=== PATIENT | male | born 1940 | race Caucasian/White ===

== ENCOUNTER 2019-02-16 13:53 | Inpatient (IN) | payer MEDICARE, OTHER ==
[2019-02-16] MEDS ORDERED: Haloperidol Lactate 5 mg/mL 1mL Vial IM ONE (15:37)
[2019-02-16] MEDS ORDERED: Haloperidol Lactate 5 mg/mL 1mL Vial ONE (15:42)
--- NOTE | 2019-02-16 16:07 | ED Physician Chart ---
ED Chief Complaint/HPI - Patient Information Date Seen:: 02/16/19 Time Seen:: 14:30 Chief Complaint:: increased aggitation place residence Allergies:: Allergies Allergy/AdvReac Type Severity Reaction Status Date / Time No Known Allergies Allergy Verified 02/16/19 14:14 Vitals:: Vital Signs - 8 hr 02/16/19 14:15 Temp 97.3 F HR 68 RR 16 BP 138/97 O2 Sat % 96 Historian:: EMS (and psychiatrist), Other (solo truck driver) Review:: Nurse's Note Reviewed ED Review of Systems - Review of Systems General/Constitutional: No fever ED Past Medical History - Past Medical History Obtainable: No Past Medical History: Dementia Family Medical History - Family Member Mother History Unknown: Yes ED Physical Exam - Physical Examination General/Constitutional: Non-toxic appearing, Ambulatory Head: Atraumatic Eyes: Lids, conjuctiva normal Skin: Nl inspection ENMT: External ears, nose nl Neck: Nontender Respiratory: Nl effort/Exclusion Cardio Vascular: RRR GI: No tenderness/rebounding/guarding Extremities: Full ROM ED Labs/Radiology/EKG Results - Lab Results Results: refused lab draw ED Septic Shock - . Is Septic Shock (SBP<90, OR Lactate>4 mmol\L) present?: No - <6hrs of presentation: Vital Signs: Vital Signs - 8 hr 02/16/19 14:15 Temp 97.3 F HR 68 RR 16 BP 138/97 O2 Sat % 96 ED Reassessment (Disposition) - Reassessment Reassessment Condition:: Unchanged - Patient Disposition Discharge/Transfer:: Acute Care w/in this hosp (psy orderedhaldol bendryl ativan to obtain lab)
[2019-02-16 17:06] LABS: % BASOPHILS 0.9 % (0.0-2.0); % EOSINOPHILS 2.8 % (0.0-5.0); % MONOCYTES 5.5 % (2.0-10.0); % NEUTROPHILS 69.8 % (40.0-80.0); EOSINOPHILE ABSOLUTE 0.1 Th/cmm (0.1-0.4); HEMATOCRIT 33.7 % (41.0-60); HEMOGLOBIN 11.2 gm/dL (12-16); LYMPHOCYTE ABSOLUTE 1.1 Th/cmm (1.5-3.0); MEAN CORPUSCULAR HEMOGLOBIN 31.9 pg (27.0-31.0); MEAN CORPUSCULAR HGB CONC 33.2 pg (28.0-36.0); MEAN PLATELET VOLUME 6.1 fl; MONOCYTE ABSOLUTE 0.3 Th/cmm (0.3-1.0); NEUTROPHILE ABSOLUTE 3.8 Th/cmm (1.8-8.0); PLATELET COUNT 242 Th/cmm (150-400); RED BLOOD COUNT 3.51 Mil/cmm (3.80-5.80); RED CELL DISTRIBUTION WIDTH 14.6 % (11.5-20.0); WHITE BLOOD COUNT 5.3 Th/cmm (4.8-10.8)
[2019-02-16 17:23] LABS: ALB/GLOB RATIO 1.6 (1.0-1.8); ALKALINE PHOSPHATASE 61 U/L (34-104); ANION GAP 12.3 (7.0-16.0); BILIRUBIN,TOTAL 0.4 mg/dL (0.3-1.0); BUN - UREA NITROGEN 25 mg/dL (7-25); CALCIUM SERUM 8.6 mg/dL (8.6-10.3); CARBON DIOXIDE 22.4 mEq/L (21.0-31.0); CHLORIDE 104 mEq/L (98-107); CREATININE - SERUM 0.8 mg/dL (0.7-1.3); GLUCOSE 91 mg/dL (70-105); POTASSIUM SERUM 3.7 mEq/L (3.5-5.1); SGOT 35 U/L (13-39); SGPT/ALT 20 U/L (7-52); SODIUM SERUM 135 mEq/L (136-145); TOTAL PROTEIN,SERUM 6.5 gm/dL (6.0-8.3)
[2019-02-16 20:22] VITALS: BP 126/71
[2019-02-16] MEDS ORDERED: Maalox 30 mL Cup PO PRN (20:23)
[2019-02-16] MEDS ORDERED: Magnesium Hydroxide (MOM) 30 mL UDC PO PRN (20:23)
[2019-02-17] MEDS ORDERED: Multivitamin Tab PO SCH (09:00)
--- NOTE | 2019-02-17 11:40 | History and Physical ---
History of Present Illness - HPI Chief Complaint: 79 y/o male patient was brought to ER due to Increased Agitation. HPI: 79 y/o male patient was admitted at [facility] due to Increased Agitation. Patient's past medical history is unknown. Patient had an ER assessment done and a complete workup was done. Patient was diagnosed with Acute psychosis. Patient will have a Psych evaluation and management. I will follow, treat and monitor patient. Patient will continue current treatment plan as ordered. Vital Signs: Last Vital Signs Temp 98.8 F 02/16/19 19:36 Pulse 60 02/16/19 19:36 Resp 18 02/17/19 08:00 BP 126/71 02/16/19 20:22 Pulse Ox 100 02/16/19 19:17 Past Medical History Cardiovascular: Report: No Pertinent Hx Pulmonary: Report: No Pertinent Hx MEDICAL ORDERLY: Report: No Pertinent Hx GI: Report: No Pertinent Hx Psych: Report: Psychosis Musculoskeletal: Report: No Pertinent Hx Rheumatologic: Report: No pertinent Hx Infectious Disease: Report: No Pertinent Hx Renal/: Report: No Pertinent Hx Endocrine: Report: No Pertinent Hx Dermatology: Report: No Pertinent Hx - Past Surgical History Past Surgical History: No pertinent Hx Family Medical History - Family Member Mother History Unknown: Yes Social History Smoke: No Alcohol: None Drugs: None Lives: [place] Domestic Violence: Negative Health Maintenance Health Maintenance: Other (see chart.) - Medications Home Medications: Home Medication Medication Instructions Recorded Type OLANZapine [ZyPREXA] 5 mg PO BID 02/16/19 History Other Medications: Please see medication reconciliation sheet. - Allergies Allergies/Adverse Reactions: Allergies Allergy/AdvReac Type Severity Reaction Status Date / Time No Known Allergies Allergy Verified 02/16/19 14:14 Review of Systems - Review of Systems Review of Systems: 79 y/o male patient has had increased agitation. Constitutional: Report: No Significant Eyes: Report: No Significant ENT: Report: No Significant Respiratory: Report: No Significant Cardiovascular: Report: No Significant Gastrointestinal: Report: No Significant Genitourinary: Report: No Significant Musculoskeletal: Report: No Significant Skin: Report: No Significant Neurological: Report: Other (agitation.) Physical Exam - Physical Exam HEENT: Report: Ears Nose Throat within normal limits Neck: Report: Within normal limits Cardiovascular Systems: Report: +s1/s2 noted, Regular, Rate and Rhythm Respiratory: Report: Breath Sounds are within normal limits Abdomen: Report: Non-tender to palpation Back: Report: Inspection of back is within normal limits. Extremities: Report: Non-tender to palpation. Skin: Report: Color of skin is within normal limits Neuro/Psych: Report: Other (Increased agitation.) - Lab Results All Lab Results last 24 hours: Laboratory Results - last 24 hr 02/16/19 02/16/19 17:03 17:03 WBC 5.3 RBC 3.51 L Hgb 11.2 L Hct 33.7 L MCV 96.0 MCH 31.9 H MCHC Differential 33.2 RDW 14.6 Plt Count 242 MPV 6.1 Neutrophils % 69.8 Lymphocytes % 21.0 Monocytes % 5.5 Eosinophils % 2.8 Basophils % 0.9 Sodium 135 L Potassium 3.7 Chloride 104 Carbon Dioxide 22.4 Anion Gap 12.3 BUN 25 Creatinine 0.8 Est GFR ( Amer) TNP Est GFR (Non-Af Amer) TNP BUN/Creatinine Ratio 31.3 Glucose 91 Calcium 8.6 Total Bilirubin 0.4 AST 35 ALT 20 Alkaline Phosphatase 61 Total Protein 6.5 Albumin 4.0 L Globulin 2.5 Albumin/Globulin Ratio 1.6 - Assessment Assessment: Acute Psychosis. Increased agitation. - Plan Plan: Plan Continuation of care. Psych eval/management requested. Monitor labs. Continue present meds as directed. Monitor Diet/Nutritional support. Safety precaution. Supportive care. Fall precaution. Will Monitor patient and continue current treatment plan as ordered.
--- NOTE | 2019-02-18 10:03 | Psychiatric Evaluation ---
DATE OF SERVICE: INITIAL EVALUATION AND MENTAL STATUS EXAM PATIENT'S AGE: 79-year-old. SEX: Male. PHYSICIAN: Sheri Escobar MD, MPH CHIEF COMPLAINT: Increased agitation and aggressive behavior. HISTORY OF PRESENT ILLNESS: The patient is an 79-year-old male who lives in [facility]. The patient became extremely agitated and irritable at the facility and was not able to follow any directions and started hitting peers and staff and the patient was transferred to the [facility]. The patient is still agitated and is still irritable and restless. The patient also was fighting and hitting staff upon arrival. The patient also was still not able to follow any directions and the patient was given emergency Haldol, Ativan and Benadryl earlier. The patient currently seems to be sedated and he is sleeping and he is not able to follow directions and had to be given emergency medicine to calm him down. PAST PSYCHIATRIC HISTORY: The patient has history of psychosis and dementia. PAST MEDICAL HISTORY: No major medical problems for the patient. SOCIAL HISTORY: The patient lives in [facility]. No known alcohol or drug use at this time. ALLERGIES: No known allergies. MENTAL STATUS EXAMINATION: The patient appears slightly older than his stated age. Anxious. Sad affect. Irritable mood. Thought processes are circumstantial with occasional flight of ideas. The patient seems to be preoccupied and agitated and delusional and responding. Intact remote memory, but impaired immediate and recent memory. Poor insight and poor judgment. ASSESSMENT: PRIMARY DIAGNOSIS: Chronic paranoid schizophrenia with acute exacerbation. TREATMENT PLAN: We will monitor the patient's behavior and condition closely. We will start individual as well as milieu psychotherapy. Also, we will monitor psychotropic medications and we will start the patient on Seroquel 100 mg 3 times a day and will adjust the dose. ESTIMATED LENGTH OF STAY: 5-7 days. THE PATIENT'S STRENGTHS AND WEAKNESSES: The patient's strength is not clear at this time. Weaknesses are his ineffective coping and poor impulse control. AFTER DISCHARGE PLAN: Outpatient treatment and followup will continue as an outpatient. CRITERIA FOR DISCHARGE: Better impulse control, adjusting psychotropic medication and will not be psychotic. [facility]# [id number]
--- NOTE | 2019-02-18 10:31 | Progress Notes ---
DATE: SUBJECTIVE: Chart was reviewed and the patient interviewed. Also discussed the patient's condition with the staff and reviewed records and labs. The patient continued to be easily agitated and is still demanding and in irritable mood. The patient also still gets aggressive with the staff, especially when he asks to smoke and not smoking time and he gets more agitated and physically aggressive. Also, is still in angry mood and confused and during my interview, the patient was wandering around and turning on and off the switch light in his room. Otherwise, the patient started to comply with taking Seroquel and Zyprexa and the planning to cross titrate Zyprexa with Seroquel. ASSESSMENT: The patient is still confused and aggressive and can be dangerous to others. TREATMENT PLAN: Continue adjusting psychotropic medications and continue to work on behavioral modification. [facility]# [id number]
--- NOTE | 2019-02-19 14:44 | Internal Medicine Prog Note ---
Internal Medicine Subjective - Subjective Service Date: 02/19/19 Patient seen and examined:: with staff Patient is:: awake, interactive, confused Patient Complaints of:: other (Aggressive.) Per staff patient has:: no adverse event, no episodes of fall, agitated Internal Medicine Objective - Results Result Diagrams: 02/16/19 17:03 02/16/19 17:03 Recent Labs: Laboratory Last Values WBC 5.3 Th/cmm (4.8-10.8) 02/16/19 17:03 RBC 3.51 Mil/cmm (3.80-5.80) L 02/16/19 17:03 Hgb 11.2 gm/dL (12-16) L 02/16/19 17:03 Hct 33.7 % (41.0-60) L 02/16/19 17:03 MCV 96.0 fl (80-99) 02/16/19 17:03 MCH 31.9 pg (27.0-31.0) H 02/16/19 17:03 MCHC Differential 33.2 pg (28.0-36.0) 02/16/19 17:03 RDW 14.6 % (11.5-20.0) 02/16/19 17:03 Plt Count 242 Th/cmm (150-400) 02/16/19 17:03 MPV 6.1 fl 02/16/19 17:03 Neutrophils % 69.8 % (40.0-80.0) 02/16/19 17:03 Lymphocytes % 21.0 % (20.0-50.0) 02/16/19 17:03 Monocytes % 5.5 % (2.0-10.0) 02/16/19 17:03 Eosinophils % 2.8 % (0.0-5.0) 02/16/19 17:03 Basophils % 0.9 % (0.0-2.0) 02/16/19 17:03 Sodium 135 mEq/L (136-145) L 02/16/19 17:03 Potassium 3.7 mEq/L (3.5-5.1) 02/16/19 17:03 Chloride 104 mEq/L (98-107) 02/16/19 17:03 Carbon Dioxide 22.4 mEq/L (21.0-31.0) 02/16/19 17:03 Anion Gap 12.3 (7.0-16.0) 02/16/19 17:03 BUN 25 mg/dL (7-25) 02/16/19 17:03 Creatinine 0.8 mg/dL (0.7-1.3) 02/16/19 17:03 Est GFR ( Amer) TNP 02/16/19 17:03 Est GFR (Non-Af Amer) TNP 02/16/19 17:03 BUN/Creatinine Ratio 31.3 02/16/19 17:03 Glucose 91 mg/dL (70-105) 02/16/19 17:03 Calcium 8.6 mg/dL (8.6-10.3) 02/16/19 17:03 Total Bilirubin 0.4 mg/dL (0.3-1.0) 02/16/19 17:03 AST 35 U/L (13-39) 02/16/19 17:03 ALT 20 U/L (7-52) 02/16/19 17:03 Alkaline Phosphatase 61 U/L (34-104) 02/16/19 17:03 Total Protein 6.5 gm/dL (6.0-8.3) 02/16/19 17:03 Albumin 4.0 gm/dL (4.2-5.5) L 02/16/19 17:03 Globulin 2.5 gm/dL 02/16/19 17:03 Albumin/Globulin Ratio 1.6 (1.0-1.8) 02/16/19 17:03 - Physical Exam Vitals and I&O: Vital Signs Temp 97.6 F 02/19/19 06:04 Pulse 66 02/19/19 06:04 Resp 18 02/19/19 06:04 BP 127/74 02/19/19 06:04 Pulse Ox 96 02/19/19 06:04 Intake & Output 02/18/19 02/19/19 02/19/19 18:59 06:59 18:59 Intake Total 1200 120 Balance 1200 120 Intake: Oral 1200 120 Other: # Voids 4 3 # Bowel Movements 1 Active Medications: Current Medications Acetaminophen (Tylenol) 650 mg PO Q4HR PRN PRN Reason: Mild Pain / Temp above 100 Stop: 04/17/19 20:22 Al Hydrox/Mg Hydrox/Simethicone (Maalox) 30 ml PO Q4HR PRN PRN Reason: GI DISTRESS Stop: 04/17/19 20:22 Lorazepam (Ativan) 0.5 mg PO Q4HR PRN; Protocol PRN Reason: Anxiety Stop: 03/18/19 20:22 Magnesium Hydroxide (Milk Of Magnesia) 30 ml PO HS PRN PRN Reason: Constipation Mupirocin (Bactroban Oint) 10 appl TP BID [facility] Stop: 04/20/19 08:59 Last Admin: 02/19/19 09:03 Dose: 10 appl Quetiapine Fumarate (Seroquel) 100 mg PO TID [facility]; Protocol Stop: 04/18/19 08:59 Last Admin: 02/19/19 13:54 Dose: 100 mg Risperidone (Risperdal) 1 mg PO BID [facility]; Protocol Stop: 04/20/19 08:59 Physical Exam: 79 y/o male patient is aggressive and dis-oriented. General: other (Confused.) HEENT: NC/AT Neck: Supple Lungs: CTAB Cardiovascular: Normal S1 Abdomen: soft, non-tender Extremities: clear Neurological: no change Internal Medicine Assmt/Plan - Assessment Assessment: Acute Psychosis. Increased agitation. - Plan Plan: Plan Continuation of care. Psych eval/management requested. Monitor labs. Continue present meds as directed. Monitor Diet/Nutritional support. Safety precaution. Supportive care. Fall precaution. Will Monitor patient and continue current treatment plan as ordered. Nutritional Asmnt/Malnutr-PDOC - Dietary Evaluation Malnutrition Findings (Please click <Entered> for more info): see orders.
--- NOTE | 2019-02-19 22:21 | Progress Notes ---
DATE: SUBJECTIVE: Chart was reviewed and the patient interviewed. Also discussed the patient's condition with the staff and reviewed records and labs. The patient is still easily agitated and easily irritable. The patient also is still confused and aggressive and wandering around his room during my interview and has unrelated questions. The patient also still at times has refused to take his medications. Also, he is rambling. Also, he was throwing objects around his room. The patient did take his Seroquel, but refused to take Zyprexa in the morning. ASSESSMENT: The patient is still psychotic and aggressive and can be dangerous to others. TREATMENT PLAN: Continue to monitor his behavior and his condition closely. Also, continue to work on his psychosis and irritability and continue to follow up. JOB# [id number]
--- NOTE | 2019-02-20 20:37 | Progress Notes ---
DATE: 02/20/2019 SUBJECTIVE: The patient was seen in his room. The patient is awake, appears to be guarded. He easily gets frustrated and irritable. The patient is a poor historian due to medical condition, otherwise the patient appears to be in no acute distress. OBJECTIVE: VITAL SIGNS: Temperature 98.4, heart rate 64, blood pressure 135/85, respirations 19, and 95% on room air. HEENT: Head is atraumatic and normocephalic. Eyes: Bilateral conjunctivae are clear. Bilateral pupils are equally round and reactive. NECK: Supple. No JVD. CARDIOVASCULAR: S1, S2, without murmur. PULMONARY: Clear to auscultation. GASTROINTESTINAL: Soft and nontender without guarding. Positive bowel sounds. MUSCULOSKELETAL: No clubbing. No cyanosis noted. ASSESSMENT: 1. Dementia. 2. Psychosis. 3. Osteoarthritis. PLAN: We will continue to keep the patient in inpatient psychiatric unit. We will follow up with a psychiatrist to monitor the patient's condition and behavior. Treatment plans were discussed with the patient's nurse. Treatment plans were discussed with Dr. Gold. JOB# [id number]
--- NOTE | 2019-02-21 02:03 | Progress Notes ---
DATE: 02/20/2019 SUBJECTIVE: Chart was reviewed and the patient interviewed. Also discussed the patient's condition with the staff and reviewed the records and labs. The patient is still agitated and is still rambling and has unpredictable behavior. The patient also is still forgetful and is still aggressive and easily agitated with the staff and others. The patient also is demanding and is wandering around his room in a confused and agitated state. Otherwise, the patient continued to comply with taking Seroquel and Risperdal with no side effects. ASSESSMENT: The patient is still agitated and still needs close monitoring. TREATMENT PLAN: Continue to monitor his behavior and condition closely. Also, continue adjusting psychotropic medications and work on behavioral modification because the patient still can be dangerous to others. [facility]# [id number]
--- NOTE | 2019-02-21 10:06 | Internal Medicine Prog Note ---
Internal Medicine Subjective - Subjective Patient seen and examined:: chart reviewed Patient is:: awake, interactive, confused, other (still agitated, unpredictable ) Patient Complaints of:: other (Aggressive.) Per staff patient has:: no adverse event, no episodes of fall, agitated Internal Medicine Objective - Results Result Diagrams: 02/16/19 17:03 02/16/19 17:03 Recent Labs: Laboratory Last Values WBC 5.3 Th/cmm (4.8-10.8) 02/16/19 17:03 RBC 3.51 Mil/cmm (3.80-5.80) L 02/16/19 17:03 Hgb 11.2 gm/dL (12-16) L 02/16/19 17:03 Hct 33.7 % (41.0-60) L 02/16/19 17:03 MCV 96.0 fl (80-99) 02/16/19 17:03 MCH 31.9 pg (27.0-31.0) H 02/16/19 17:03 MCHC Differential 33.2 pg (28.0-36.0) 02/16/19 17:03 RDW 14.6 % (11.5-20.0) 02/16/19 17:03 Plt Count 242 Th/cmm (150-400) 02/16/19 17:03 MPV 6.1 fl 02/16/19 17:03 Neutrophils % 69.8 % (40.0-80.0) 02/16/19 17:03 Lymphocytes % 21.0 % (20.0-50.0) 02/16/19 17:03 Monocytes % 5.5 % (2.0-10.0) 02/16/19 17:03 Eosinophils % 2.8 % (0.0-5.0) 02/16/19 17:03 Basophils % 0.9 % (0.0-2.0) 02/16/19 17:03 Sodium 135 mEq/L (136-145) L 02/16/19 17:03 Potassium 3.7 mEq/L (3.5-5.1) 02/16/19 17:03 Chloride 104 mEq/L (98-107) 02/16/19 17:03 Carbon Dioxide 22.4 mEq/L (21.0-31.0) 02/16/19 17:03 Anion Gap 12.3 (7.0-16.0) 02/16/19 17:03 BUN 25 mg/dL (7-25) 02/16/19 17:03 Creatinine 0.8 mg/dL (0.7-1.3) 02/16/19 17:03 Est GFR ( Amer) TNP 02/16/19 17:03 Est GFR (Non-Af Amer) TNP 02/16/19 17:03 BUN/Creatinine Ratio 31.3 02/16/19 17:03 Glucose 91 mg/dL (70-105) 02/16/19 17:03 Calcium 8.6 mg/dL (8.6-10.3) 02/16/19 17:03 Total Bilirubin 0.4 mg/dL (0.3-1.0) 02/16/19 17:03 AST 35 U/L (13-39) 02/16/19 17:03 ALT 20 U/L (7-52) 02/16/19 17:03 Alkaline Phosphatase 61 U/L (34-104) 02/16/19 17:03 Total Protein 6.5 gm/dL (6.0-8.3) 02/16/19 17:03 Albumin 4.0 gm/dL (4.2-5.5) L 02/16/19 17:03 Globulin 2.5 gm/dL 02/16/19 17:03 Albumin/Globulin Ratio 1.6 (1.0-1.8) 02/16/19 17:03 - Physical Exam Vitals and I&O: Vital Signs Temp 98 F 02/21/19 05:56 Pulse 62 02/21/19 05:56 Resp 20 02/21/19 05:56 BP 135/89 02/21/19 05:56 Pulse Ox 100 02/21/19 05:56 Active Medications: Current Medications Acetaminophen (Tylenol) 650 mg PO Q4HR PRN PRN Reason: Mild Pain / Temp above 100 Stop: 04/17/19 20:22 Al Hydrox/Mg Hydrox/Simethicone (Maalox) 30 ml PO Q4HR PRN PRN Reason: GI DISTRESS Stop: 04/17/19 20:22 Lorazepam (Ativan) 0.5 mg PO Q4HR PRN; Protocol PRN Reason: Anxiety Stop: 03/18/19 20:22 Last Admin: 02/21/19 09:33 Dose: 0.5 mg Magnesium Hydroxide (Milk Of Magnesia) 30 ml PO HS PRN PRN Reason: Constipation Mupirocin (Bactroban Oint) 10 appl TP BID [facility] Stop: 04/20/19 08:59 Last Admin: 02/21/19 09:45 Dose: Not Given Quetiapine Fumarate (Seroquel) 150 mg PO TID [facility]; Protocol Stop: 04/22/19 08:59 Last Admin: 02/21/19 09:32 Dose: 150 mg Risperidone (Risperdal) 1 mg PO BID VINNY; Protocol Stop: 04/20/19 08:59 Last Admin: 02/21/19 09:33 Dose: 1 mg Physical Exam: 79 y/o male patient is aggressive and dis-oriented. General: other (Confused.) HEENT: NC/AT Neck: Supple Lungs: CTAB Cardiovascular: Normal S1 Abdomen: soft, non-tender Extremities: clear Neurological: no change Internal Medicine Assmt/Plan - Assessment Assessment: Acute Psychosis. Increased agitation. - Plan Plan: Plan Continuation of care. Psych eval/management requested. Monitor labs. Continue present meds as directed. Monitor Diet/Nutritional support. Safety precaution. Supportive care. Fall precaution. Will Monitor patient and continue current treatment plan as ordered.
[2019-02-21] MEDS ORDERED: Sodium Chloride 0.9% 1,000 ML IV SCH (23:15)
--- NOTE | 2019-02-24 00:25 | History & Physical ---
ADMIT DATE: 02/16/2019 HISTORY OF PRESENT ILLNESS: This is an 79-year-old male patient. The patient is known to have history of multiple problems including severe agitation, severe psychosis, recently had dropped his blood pressure down, was admitted to [facility] and then readily transferred to the [facility] once his blood pressure is improved and the patient was very aggressive and a noncompliant patient. Medication including Seroquel, Risperdal, as well as Tylenol. PHYSICAL EXAMINATION: HEAD: Normal. ENT: Normal. NECK: Supple, nontender. LUNGS: Bilaterally clear. CARDIOVASCULAR SYSTEM: S1, S2 heard. ABDOMEN: Soft. DIAGNOSES: Recent hypotensive episode of unknown etiology, possibly dehydration and acute psychosis, confusion and agitation. PLAN: The patient is being admitted and I will go ahead and continue his management medically admitted and psychiatrist will see the patient psychiatrically. JOB# [id number]
== END 2019-02-21 21:58 | disposition short-term general hospital (02) | DRG 885 ==
LOC: ER 13:53 → GERO2 19:15
PROVIDERS: ADMIT Psychiatry & Neurology Psychiatry; ATTEND Psychiatry & Neurology Psychiatry
DX: F20.0 Paranoid schizophrenia (principal); M19.90 Unspecified osteoarthritis, unspecified site; F03.90 Unspecified dementia, unspecified severity, without behavioral disturbance, psychotic disturbance, mood disturbance, and anxiety; F29 Unspecified psychosis not due to a substance or known physiological condition
CPT/HCPCS: 36415-UA; 80053-TC; 82948-90; 85025-TC; J1200; J1630; J2060; J7051; Z7610

== ENCOUNTER 2019-02-21 22:01 | Inpatient (IN) | payer MEDICARE, OTHER ==
[2019-02-21] MEDS ORDERED: Sodium Chloride 0.9% 1,000 ML IV SCH (23:15)
--- NOTE | 2019-02-21 23:26 | Progress Notes ---
DATE: SUBJECTIVE: Chart reviewed and the patient interviewed. Also discussed the patient's condition with the staff and reviewed records and labs. The patient is still demanding and is still agitated and in irritable mood. The patient also is still rambling and still have unpredictable behavior. The patient also is easily agitated. On the other hand, the patient continued to comply with taking his medications with no side effects of medications. ASSESSMENT: The patient is still agitated and can be dangerous to others. TREATMENT PLAN: Continue to monitor his behavior and his condition closely. Also, continue adjusting psychotropic medications and followup. JOB# [id number]
[2019-02-21 23:35] LABS: % EOSINOPHILS 3.4 % (0.0-5.0); % LYMPHOCYTES 31.6 % (20.0-50.0); % MONOCYTES 6.2 % (2.0-10.0); % NEUTROPHILS 57.8 % (40.0-80.0); BASOPHILE ABSOLUTE 0.1 Th/cumm (0-0.2); EOSINOPHILE ABSOLUTE 0.2 Th/cmm (0.1-0.4); HEMATOCRIT 38.6 % (41.0-60); HEMOGLOBIN 12.7 gm/dL (12-16); LYMPHOCYTE ABSOLUTE 1.7 Th/cmm (1.5-3.0); MEAN CELL VOLUME 97.2 fl (80-99); MEAN CORPUSCULAR HEMOGLOBIN 31.9 pg (27.0-31.0); MEAN CORPUSCULAR HGB CONC 32.8 pg (28.0-36.0); MONOCYTE ABSOLUTE 0.3 Th/cmm (0.3-1.0); NEUTROPHILE ABSOLUTE 3.1 Th/cmm (1.8-8.0); PLATELET COUNT 266 Th/cmm (150-400); RED BLOOD COUNT 3.98 Mil/cmm (3.80-5.80); RED CELL DISTRIBUTION WIDTH 14.7 % (11.5-20.0); WHITE BLOOD COUNT 5.4 Th/cmm (4.8-10.8)
[2019-02-21 23:47] LABS: ALB/GLOB RATIO 1.6 (1.0-1.8); ALBUMIN 4.1 gm/dL (4.2-5.5); ALKALINE PHOSPHATASE 57 U/L (34-104); ANION GAP 11.2 (7.0-16.0); BILIRUBIN,TOTAL 0.6 mg/dL (0.3-1.0); BUN - UREA NITROGEN 26 mg/dL (7-25); CALCIUM SERUM 9.4 mg/dL (8.6-10.3); CARBON DIOXIDE 27.9 mEq/L (21.0-31.0); CHLORIDE 97 mEq/L (98-107); CREATININE - SERUM 1.2 mg/dL (0.7-1.3); GLUCOSE 88 mg/dL (70-105); POTASSIUM SERUM 4.1 mEq/L (3.5-5.1); SGOT 27 U/L (13-39); SGPT/ALT 18 U/L (7-52); SODIUM SERUM 132 mEq/L (136-145); TOTAL PROTEIN,SERUM 6.7 gm/dL (6.0-8.3)
[2019-02-22 04:42] VITALS: BP 115/75
--- NOTE | 2019-02-22 08:03 | Diagnostic Imaging Report ---
Portable chest x-ray HISTORY: Shortness of breath Heart size difficult to assess with portable technique and a poor inspiration. Atherosclerotic calcination seen in the aorta. No acute focal pulmonary processes. Cardiac pacemaker lead wires project over the right atrium and right ventricle. IMPRESSION: 1. No acute pulmonary processes
--- NOTE | 2019-02-22 10:24 | Internal Medicine Prog Note ---
Internal Medicine Subjective - Subjective Service Date: 02/22/19 Patient seen and examined:: with staff Patient is:: awake, agitated, confused Patient Complaints of:: other (aggressive behavior.) Per staff patient has:: no adverse event, no episodes of fall Internal Medicine Objective - Results Result Diagrams: 02/21/19 23:15 02/21/19 23:15 Recent Labs: Laboratory Last Values WBC 5.4 Th/cmm (4.8-10.8) 02/21/19 23:15 RBC 3.98 Mil/cmm (3.80-5.80) 02/21/19 23:15 Hgb 12.7 gm/dL (12-16) 02/21/19 23:15 Hct 38.6 % (41.0-60) L 02/21/19 23:15 MCV 97.2 fl (80-99) 02/21/19 23:15 MCH 31.9 pg (27.0-31.0) H 02/21/19 23:15 MCHC Differential 32.8 pg (28.0-36.0) 02/21/19 23:15 RDW 14.7 % (11.5-20.0) 02/21/19 23:15 Plt Count 266 Th/cmm (150-400) 02/21/19 23:15 MPV 6.7 fl 02/21/19 23:15 Neutrophils % 57.8 % (40.0-80.0) 02/21/19 23:15 Lymphocytes % 31.6 % (20.0-50.0) 02/21/19 23:15 Monocytes % 6.2 % (2.0-10.0) 02/21/19 23:15 Eosinophils % 3.4 % (0.0-5.0) 02/21/19 23:15 Basophils % 1.0 % (0.0-2.0) 02/21/19 23:15 Sodium 132 mEq/L (136-145) L 02/21/19 23:15 Potassium 4.1 mEq/L (3.5-5.1) 02/21/19 23:15 Chloride 97 mEq/L (98-107) L 02/21/19 23:15 Carbon Dioxide 27.9 mEq/L (21.0-31.0) 02/21/19 23:15 Anion Gap 11.2 (7.0-16.0) 02/21/19 23:15 BUN 26 mg/dL (7-25) H 02/21/19 23:15 Creatinine 1.2 mg/dL (0.7-1.3) 02/21/19 23:15 Est GFR ( Amer) TNP 02/21/19 23:15 Est GFR (Non-Af Amer) TNP 02/21/19 23:15 BUN/Creatinine Ratio 21.7 02/21/19 23:15 Glucose 88 mg/dL (70-105) 02/21/19 23:15 Calcium 9.4 mg/dL (8.6-10.3) 02/21/19 23:15 Total Bilirubin 0.6 mg/dL (0.3-1.0) 02/21/19 23:15 AST 27 U/L (13-39) 02/21/19 23:15 ALT 18 U/L (7-52) 02/21/19 23:15 Alkaline Phosphatase 57 U/L (34-104) 02/21/19 23:15 Total Protein 6.7 gm/dL (6.0-8.3) 02/21/19 23:15 Albumin 4.1 gm/dL (4.2-5.5) L 02/21/19 23:15 Globulin 2.6 gm/dL 02/21/19 23:15 Albumin/Globulin Ratio 1.6 (1.0-1.8) 02/21/19 23:15 - Physical Exam Vitals and I&O: Vital Signs Temp 96.6 F 02/22/19 08:00 Pulse 72 02/22/19 10:00 Resp 14 02/22/19 10:00 BP 148/97 02/22/19 10:00 Pulse Ox 97 02/22/19 10:00 Intake & Output 02/21/19 02/22/19 02/22/19 18:59 06:59 18:59 Intake Total 0 Balance 0 Weight (lbs) 83.461 kg Intake: Oral 0 Other: # Bowel Movements 0 Weight Source Bedscale Active Medications: Current Medications Sodium Chloride (Nacl 0.9%) 1,000 mls @ 50 mls/hr IV .Q20H [facility] Stop: 04/22/19 23:14 Last Admin: 02/21/19 23:00 Dose: 50 mls/hr Lorazepam (Ativan) 1 mg IVP Q4HR PRN; Protocol PRN Reason: Agitation Stop: 04/22/19 23:12 Last Admin: 02/22/19 03:55 Dose: 1 mg Physical Exam: 79 y/o male is still very aggressive and easily agitated, needs to be monitored , can be a danger to self and others. General: other (Aggressive behavior.) HEENT: NC/AT Neck: Supple Lungs: CTAB Cardiovascular: RRR, Normal S1 Abdomen: soft, non-tender Extremities: clear Neurological: no change, disorganized Internal Medicine Assmt/Plan - Assessment Assessment: Acute psychosis. Increased agitation. - Plan Plan: as per Psych. [facility] Nutritional Asmnt/Malnutr-PDOC - Dietary Evaluation Malnutrition Findings (Please click <Entered> for more info): see orders.
[2019-02-22 11:01] LABS: URINE SOURCE CLEAN C
[2019-02-22 11:19] LABS: URINE BILIRUBIN NEGATIVE (NEGATIVE); URINE BLOOD SMALL (NEGATIVE); URINE GLUCOSE (UA) NEGATIVE (NEGATIVE); URINE KETONE NEGATIVE (NEGATIVE); URINE LEUKOCYTE ESTERASE MODERATE (NEGATIVE); URINE MICROSCOPIC INDICATED? YES; URINE NITRATE NEGATIVE (NEGATIVE); URINE PROTEIN TRACE mg/dL (NEGATIVE); URINE UROBILINOGEN 0.2 E.U./dL (0.2 - 1.0)
[2019-02-22 11:30] LABS: URINE COLOR YELLOW
[2019-02-22 11:31] LABS: URINE CLARITY HAZY (CLEAR)
[2019-02-22 11:37] LABS: URINE WBC >100 /hpf (0-5)
[2019-02-22 11:38] LABS: URINE BACTERIA 1+ /hpf (NONE SEEN); URINE EPITHELIAL CELLS RARE /lpf (FEW)
--- NOTE | 2019-04-02 17:51 | Discharge Summary ---
DATE OF DISCHARGE: 02/22/2019 This patient was admitted to medical floor because the patient was hypotensive with history of acute psychosis and the patient was given fluids. The patient improved. The patient was in stable condition. On 02/22/2019 was discharged back to [facility] where the patient was admitted for agitation and psychosis. CONDITION AT THE TIME OF TRANSFER TO [facility]: Stable. JOB# [id number]
== END 2019-02-22 16:30 | DRG 315 ==
LOC: ICU 22:01
PROVIDERS: ADMIT Internal Medicine; ATTEND Internal Medicine
DX: I95.9 Hypotension, unspecified (principal); F23 Brief psychotic disorder
CPT/HCPCS: 36415-UA; 71045-TC; 80053-TC; 81001-TC; 85025-TC; 87086-90; 93005; J2060; J7030; Z7610

== ENCOUNTER 2019-02-22 16:53 | Inpatient (IN) | payer MEDICARE, OTHER ==
[2019-02-22 23:51] VITALS: BP 157/92
[2019-02-22] MEDS ORDERED: Magnesium Hydroxide (MOM) 30 mL UDC PO PRN (23:53)
[2019-02-22] MEDS ORDERED: Maalox 30 mL Cup PO PRN (23:53)
--- NOTE | 2019-02-23 01:40 | Progress Notes ---
DATE: 02/22/[address] Escobar. SUBJECTIVE: Case was discussed with staff of the patient, reviewed records. This is an 79-year-old male, who was originally admitted to [facility] on 02/16/2019. He was admitted because of increased agitation and aggressive behavior. The patient apparently had to be moved to ICU. The patient continues to have episodes of agitation, irritability, rambling, unpredictable, had to be ____ this morning 2 hours ago. The patient has been compliant with the medication with no side effects. The patient has been fed by the staff. The patient is still considered a danger to self and others because of his behavior. The patient is not ready to go to a lesser level of care because of his continued agitation and danger to others. The patient came from a board and care. The patient needs to go back to [facility] for further adjustment of his medication. Thank you very much for allowing me to participate in the care of this most interesting gentleman. [facility]# [id number]
[2019-02-23 07:06] LABS: CHOLESTEROL 290 mg/dL (<200); HDL -HIGH DENSITY LIPOPROTEIN 67 mg/dL (23-92); TRIGLYCERIDES 156 mg/dL (<150)
[2019-02-23] MEDS: Sulfamethoxazole/TMP 800/160mg Tab PO SCH ×2 (09:43→17:23)
--- NOTE | 2019-02-23 13:38 | History & Physical ---
ADMIT DATE: 02/22/2019 IDENTIFYING INFORMATION: The patient is an 79-year-old male. CHIEF COMPLAINT: The patient was acting out. HISTORY OF PRESENT ILLNESS: The patient was transferred from ICU. The patient was acting out there, had to be redirected and medicated. He was in restraint. The patient is a poor historian, unable to participate in a meaningful conversation or make safe plan for self-care. Earlier, the patient was admitted to this facility on 02/16/2019 because of agitation. PAST PSYCHIATRIC HISTORY: Unobtainable. The patient is unable to provide a meaningful conversation. MEDICAL HISTORY: As per medical doctor. ALLERGIES: The patient has no known drug allergies. MEDICATIONS: The patient has been started olanzapine 5 mg twice a day by Dr. Escobar and Seroquel 150 mg 3 times a day. FAMILY AND SOCIAL HISTORY: Unobtainable. The patient came from a nursing facility. MENTAL STATUS EXAMINATION: The patient is appropriately dressed, not well groomed. He was alert, unable to participate in a meaningful conversation or make safe plan for self-care. He is unpredictable, impulsive. He was acting out, needing redirection, unable to tell me the date, where he is, why he is here. His long and short term memory is poor. Insight and judgment is impaired. Does not know where he is, cannot participate in a meaningful conversation or make safe plan for self-care. IMPRESSION: Psychosis, not otherwise specified, dementia. Medical - as per medical doctor. PLAN: The patient will be continued with medication. I will be taking him off one of the antipsychotics three of them. I will take him off the Seroquel, keep him on Zyprexa and Risperdal, Dr. Escobar will take care of it. ESTIMATED LENGTH OF STAY: 3-7 days. DISCHARGE CRITERIA: Decreasing agitation, psychosis. After discharge, outpatient treatment. JOB# [id number]
[2019-02-23] MEDS: Atorvastatin Calcium 10 MG TAB PO SCH (21:55)
--- NOTE | 2019-02-23 23:15 | History and Physical ---
History of Present Illness - HPI Chief Complaint: 79 y/o male patient was transferred from ICU due to high blood pressure. HPI: 79 y/o male patient was transferred from ICU due to High blood pressure and Acting out. Patient has history of Acute psychosis, Anxiety, Insomnia and Dyspepsia. Patient had an ER assessment and had a complete workup done. Patient was diagnosed with Hypertension, Acute Psychosis and Constipation. Patient will have a Psych consult and I will follow patient. Patient will be treated and monitored. Patient will continue current treatment plan as ordered. Vital Signs: Last Vital Signs Temp 98.0 F 02/23/19 19:29 Pulse 72 02/23/19 19:29 Resp 20 02/23/19 19:29 BP 114/75 02/23/19 19:29 Pulse Ox 94 02/23/19 19:29 Past Medical History Cardiovascular: Report: HTN Pulmonary: Report: No Pertinent Hx MANAGER HOTEL: Report: No Pertinent Hx GI: Report: Constipation, Other (Dyspepsia.) Psych: Report: Anxiety, Psychosis, Other (Insomnia.) Musculoskeletal: Report: No Pertinent Hx Rheumatologic: Report: No pertinent Hx Infectious Disease: Report: No Pertinent Hx Renal/: Report: No Pertinent Hx Endocrine: Report: No Pertinent Hx Dermatology: Report: No Pertinent Hx - Past Surgical History Past Surgical History: No pertinent Hx Family Medical History - Family Member Mother History Unknown: Yes Ethnicity: Unknown Living Status: Unknown Social History Smoke: No Alcohol: None Drugs: None Lives: Care Home Domestic Violence: Negative Health Maintenance Health Maintenance: Other (see chart.) - Medications Home Medications: Home Medication Medication Instructions Recorded Type OLANZapine [ZyPREXA] 5 mg PO BID 02/16/19 History Acetaminophen [Tylenol] 650 mg PO Q4HR PRN 02/22/19 History Al Hyd/Mg Hyd/Simethicone [Maalox] 30 ml PO Q4HR PRN 02/22/19 History Magnesium Hydroxide [Milk of 30 ml PO HS PRN 02/22/19 History Magnesia] Mupirocin Oint [Bactroban] 1 appl TP BID 02/22/19 History QUEtiapine Fumarate [SEROquel] 150 mg PO TID 02/22/19 History Risperidone [Risperdal] 1 mg PO BID 02/22/19 History Other Medications: Please see medication reconciliation sheet. - Allergies Allergies/Adverse Reactions: Allergies Allergy/AdvReac Type Severity Reaction Status Date / Time No Known Allergies Allergy Verified 02/16/19 14:14 Review of Systems - Review of Systems Review of Systems: 79 y/o male patient has been acting out was diagnosed with Acute psychosis. Patient also had high blood pressure which is being monitored and managed. Constitutional: Report: No Significant Eyes: Report: No Significant ENT: Report: No Significant Respiratory: Report: No Significant Cardiovascular: Report: No Significant Gastrointestinal: Report: Abdominal Pain, Constipation Genitourinary: Report: No Significant Musculoskeletal: Report: No Significant Skin: Report: No Significant Neurological: Report: Other (Acute psychosis-Acting out.) Physical Exam - Physical Exam HEENT: Report: Ears Nose Throat within normal limits Neck: Report: Within normal limits Cardiovascular Systems: Report: +s1/s2 noted Respiratory: Report: Breath Sounds are within normal limits Abdomen: Report: Tender to palpation Back: Report: Inspection of back is within normal limits. Extremities: Report: Non-tender to palpation. Skin: Report: Color of skin is within normal limits Neuro/Psych: Report: Other (Acting out/Agitated.) - Lab Results All Lab Results last 24 hours: Laboratory Results - last 24 hr 02/23/19 06:20 Triglycerides 156 H Cholesterol 290 H LDL Cholesterol Direct 189 HDL Cholesterol 67 - Assessment Assessment: Acute psychosis. Hypertension. Anxiety. Insomnia. Dyspepsia. Constipation. - Plan Plan: Continuation of care. Monitor Vitals, Labs. Continue present meds as directed. Monitor Diet/Nutritional support. Psych consult requested/Psych management. Pain Management. Safety precaution. Supportive care. Fall precaution, frequent nursing rounds, and as needed restraints to prevent fall. Continue collaborating with consulting specialists, case management and nursing team. Will Monitor patient and continue current treatment plan as ordered.
--- NOTE | 2019-02-23 23:15 | Internal Medicine Prog Note ---
Internal Medicine Objective - Results Recent Labs: Laboratory Last Values Triglycerides 156 mg/dL (<150) H 02/23/19 06:20 Cholesterol 290 mg/dL (<200) H 02/23/19 06:20 LDL Cholesterol Direct 189 mg/dL (75-193) 02/23/19 06:20 HDL Cholesterol 67 mg/dL (23-92) 02/23/19 06:20 - Physical Exam Vitals and I&O: Vital Signs Temp 98.0 F 02/23/19 19:29 Pulse 72 02/23/19 19:29 Resp 20 02/23/19 19:29 BP 114/75 02/23/19 19:29 Pulse Ox 94 02/23/19 19:29 Intake & Output 02/23/19 02/23/19 02/24/19 06:59 18:59 06:59 Intake Total 120 240 240 Balance 120 240 240 Intake: Oral 120 240 240 Other: # Voids 2 0 2 # Bowel Movements 0 0 Weight Source Estimated Active Medications: Current Medications Acetaminophen (Tylenol) 650 mg PO Q4H PRN PRN Reason: Mild Pain/Headache/T above 101 Stop: 04/23/19 23:52 Last Admin: 02/23/19 21:56 Dose: 650 mg Al Hydrox/Mg Hydrox/Simethicone (Maalox) 30 ml PO Q6H PRN PRN Reason: Dyspepsia Stop: 04/23/19 23:52 Atorvastatin Calcium (Lipitor) 20 mg PO HS [facility]; Protocol Stop: 04/24/19 20:59 Last Admin: 02/23/19 21:55 Dose: 20 mg Lorazepam (Ativan) 0.5 mg PO Q4HR PRN; Protocol PRN Reason: Anxiety Stop: 03/24/19 23:52 Magnesium Hydroxide (Milk Of Magnesia) 30 ml PO HS PRN PRN Reason: Constipation Mupirocin (Bactroban Oint) 1 appl TP BID [facility] Stop: 02/25/19 09:01 Last Admin: 02/23/19 17:23 Dose: 1 appl Olanzapine (Zyprexa) 5 mg PO BID [facility]; Protocol Stop: 04/25/19 02:59 Risperidone (Risperdal) 1 mg PO BID [facility]; Protocol Stop: 04/24/19 02:59 Last Admin: 02/23/19 17:24 Dose: 1 mg Trimethoprim/Sulfamethoxazole (Bactrim Ds) 1 tab PO BID [facility] Stop: 04/24/19 08:59 Last Admin: 02/23/19 17:23 Dose: 1 tab Zolpidem Tartrate (Ambien) 5 mg PO HS PRN PRN Reason: Insomnia Stop: 04/23/19 23:52 Last Admin: 02/23/19 21:55 Dose: 5 mg
--- NOTE | 2019-02-24 08:13 | Progress Notes ---
DATE: 02/24/2019 SUBJECTIVE: Chart was reviewed and the patient interviewed. Also discussed the patient's condition with the staff and reviewed records and labs. The patient is still combative and is still banging on the table and easily irritable and agitated. The patient also is still demanding. The patient also is forgetful and still needs lots of redirections. The patient also is still suspicious and paranoid. On the other hand, the patient is compliant with taking his medications with no side effects of medications. ASSESSMENT: The patient is irritated, agitated and in irritable mood. TREATMENT PLAN: Continue to monitor his behavior and his condition closely. Also, continue to work on his poor impulse control. Also continue Zyprexa 5 mg twice a day and Risperdal 1 mg twice a day. The patient is on two antipsychotic medications, but at the same time the patient has been severely agitated and irritable and needs lots of redirections JOB# [id number]
[2019-02-24] MEDS: Sulfamethoxazole/TMP 800/160mg Tab PO SCH ×2 (09:11→17:50)
--- NOTE | 2019-02-24 11:24 | Internal Medicine Prog Note ---
Internal Medicine Subjective - Subjective Service Date: 02/23/19 Patient seen and examined:: with staff Patient is:: awake, verbal, agitated, confused Patient Complaints of:: constipation, headache Per staff patient has:: no adverse event, no episodes of fall Internal Medicine Objective - Results Recent Labs: Laboratory Last Values Triglycerides 156 mg/dL (<150) H 02/23/19 06:20 Cholesterol 290 mg/dL (<200) H 02/23/19 06:20 LDL Cholesterol Direct 189 mg/dL (75-193) 02/23/19 06:20 HDL Cholesterol 67 mg/dL (23-92) 02/23/19 06:20 - Physical Exam Vitals and I&O: Vital Signs Temp 98.3 F 02/24/19 04:54 Pulse 69 02/24/19 04:54 Resp 19 02/24/19 04:54 BP 139/97 02/24/19 04:54 Pulse Ox 90 02/24/19 04:54 Intake & Output 02/23/19 02/24/19 02/24/19 18:59 06:59 18:59 Intake Total 240 480 Balance 240 480 Intake: Oral 240 480 Other: # Voids 0 2 # Bowel Movements 0 Stool Characteristics Soft Active Medications: Current Medications Acetaminophen (Tylenol) 650 mg PO Q4H PRN PRN Reason: Mild Pain/Headache/T above 101 Stop: 04/23/19 23:52 Last Admin: 02/23/19 21:56 Dose: 650 mg Al Hydrox/Mg Hydrox/Simethicone (Maalox) 30 ml PO Q6H PRN PRN Reason: Dyspepsia Stop: 04/23/19 23:52 Atorvastatin Calcium (Lipitor) 20 mg PO HS [facility]; Protocol Stop: 04/24/19 20:59 Last Admin: 02/23/19 21:55 Dose: 20 mg Lorazepam (Ativan) 0.5 mg PO Q4HR PRN; Protocol PRN Reason: Anxiety Stop: 03/24/19 23:52 Magnesium Hydroxide (Milk Of Magnesia) 30 ml PO HS PRN PRN Reason: Constipation Mupirocin (Bactroban Oint) 1 appl TP BID [facility] Stop: 02/25/19 09:01 Last Admin: 02/24/19 09:13 Dose: 1 appl Olanzapine (Zyprexa) 5 mg PO BID [facility]; Protocol Stop: 04/25/19 02:59 Last Admin: 02/24/19 09:10 Dose: 5 mg Risperidone (Risperdal) 1 mg PO BID [facility]; Protocol Stop: 04/24/19 02:59 Last Admin: 02/24/19 09:10 Dose: 1 mg Trimethoprim/Sulfamethoxazole (Bactrim Ds) 1 tab PO BID [facility] Stop: 04/24/19 08:59 Last Admin: 02/24/19 09:11 Dose: 1 tab Zolpidem Tartrate (Ambien) 5 mg PO HS PRN PRN Reason: Insomnia Stop: 04/23/19 23:52 Last Admin: 02/23/19 21:55 Dose: 5 mg Physical Exam: 79 y/o male patient continues to be agitated and has been acting out. General: demented HEENT: NC/AT Neck: Supple, No JVD Lungs: CTAB Cardiovascular: RRR, Normal S1 Abdomen: soft, non-tender Extremities: clear Neurological: no change, disorganized Internal Medicine Assmt/Plan - Assessment Assessment: Psychosis. Constipation. Anxiety. Dyspepsia. Insomnia. - Plan Plan: Continuation of care. Monitor Vitals and Labs. Continue present meds as directed. Monitor Diet/Nutritional support. As per Psych /mental status progression/behavior. Pain Management. Safety precaution. Supportive care. Fall precaution, frequent nursing rounds, and as needed restraints to prevent fall. Continue collaborating with consulting specialists, case management and nursing team. Will Monitor patient and continue current treatment plan as ordered. Nutritional Asmnt/Malnutr-PDOC - Dietary Evaluation Malnutrition Findings (Please click <Entered> for more info): see orders.
--- NOTE | 2019-02-24 11:34 | Internal Medicine Prog Note ---
Internal Medicine Subjective - Subjective Service Date: 02/24/19 Patient seen and examined:: with staff Patient is:: awake, verbal, agitated, confused, other (still acting out.) Patient Complaints of:: constipation, bloated Per staff patient has:: no adverse event, no episodes of fall Internal Medicine Objective - Results Recent Labs: Laboratory Last Values Triglycerides 156 mg/dL (<150) H 02/23/19 06:20 Cholesterol 290 mg/dL (<200) H 02/23/19 06:20 LDL Cholesterol Direct 189 mg/dL (75-193) 02/23/19 06:20 HDL Cholesterol 67 mg/dL (23-92) 02/23/19 06:20 - Physical Exam Vitals and I&O: Vital Signs Temp 98.3 F 02/24/19 04:54 Pulse 69 02/24/19 04:54 Resp 19 02/24/19 04:54 BP 139/97 02/24/19 04:54 Pulse Ox 90 02/24/19 04:54 Intake & Output 02/23/19 02/24/19 02/24/19 18:59 06:59 18:59 Intake Total 240 480 Balance 240 480 Intake: Oral 240 480 Other: # Voids 0 2 # Bowel Movements 0 Stool Characteristics Soft Active Medications: Current Medications Acetaminophen (Tylenol) 650 mg PO Q4H PRN PRN Reason: Mild Pain/Headache/T above 101 Stop: 04/23/19 23:52 Last Admin: 02/23/19 21:56 Dose: 650 mg Al Hydrox/Mg Hydrox/Simethicone (Maalox) 30 ml PO Q6H PRN PRN Reason: Dyspepsia Stop: 04/23/19 23:52 Atorvastatin Calcium (Lipitor) 20 mg PO HS [facility]; Protocol Stop: 04/24/19 20:59 Last Admin: 02/23/19 21:55 Dose: 20 mg Lorazepam (Ativan) 0.5 mg PO Q4HR PRN; Protocol PRN Reason: Anxiety Stop: 03/24/19 23:52 Magnesium Hydroxide (Milk Of Magnesia) 30 ml PO HS PRN PRN Reason: Constipation Mupirocin (Bactroban Oint) 1 appl TP BID [facility] Stop: 02/25/19 09:01 Last Admin: 02/24/19 09:13 Dose: 1 appl Olanzapine (Zyprexa) 5 mg PO BID [facility]; Protocol Stop: 04/25/19 02:59 Last Admin: 02/24/19 09:10 Dose: 5 mg Risperidone (Risperdal) 1 mg PO BID [facility]; Protocol Stop: 04/24/19 02:59 Last Admin: 02/24/19 09:10 Dose: 1 mg Trimethoprim/Sulfamethoxazole (Bactrim Ds) 1 tab PO BID [facility] Stop: 04/24/19 08:59 Last Admin: 02/24/19 09:11 Dose: 1 tab Zolpidem Tartrate (Ambien) 5 mg PO HS PRN PRN Reason: Insomnia Stop: 04/23/19 23:52 Last Admin: 02/23/19 21:55 Dose: 5 mg Physical Exam: 79 y/o male patient continues to be easily agitated and has still been acting out. General: demented HEENT: NC/AT Neck: Supple, No JVD Lungs: CTAB Cardiovascular: RRR, Normal S1 Abdomen: soft, non-tender Extremities: clear Neurological: no change, disorganized Internal Medicine Assmt/Plan - Assessment Assessment: Psychosis. Constipation. Anxiety. Dyspepsia. Insomnia. - Plan Plan: Continuation of care. Monitor Vitals and Labs. Continue present meds as directed. Monitor Diet/Nutritional support. As per Psych /mental status progression/behavior. Pain Management. Safety precaution. Supportive care. Fall precaution, frequent nursing rounds, and as needed restraints to prevent fall. Continue collaborating with consulting specialists, case management and nursing team. Will Monitor patient and continue current treatment plan as ordered. Nutritional Asmnt/Malnutr-PDOC - Dietary Evaluation Malnutrition Findings (Please click <Entered> for more info): see orders.
[2019-02-24] MEDS: Atorvastatin Calcium 10 MG TAB PO SCH (20:58)
[2019-02-24] MEDS: Dexamethasone/Tobramycin Ophth Susp 2.5 mL Bottle EACH EYE SCH (21:09)
[2019-02-25] MEDS: Sulfamethoxazole/TMP 800/160mg Tab PO SCH ×2 (08:19→17:09)
[2019-02-25] MEDS: Dexamethasone/Tobramycin Ophth Susp 2.5 mL Bottle EACH EYE SCH ×3 (08:26→20:56)
--- NOTE | 2019-02-25 18:15 | Progress Notes ---
DATE: SUBJECTIVE: Chart was reviewed and the patient interviewed. Also discussed the patient's condition with the staff and reviewed records and labs. The patient remains extremely irritable and extremely agitated. The patient also is still suspicious and paranoid and uncooperative with the staff and threatening behavior continues. The patient also is still suspicious and paranoid. The patient also is uncooperative and refused to take his medications at times. Otherwise, the patient is slightly easier to redirect. ASSESSMENT: The patient is still agitated and is still aggressive and in irritable moods. TREATMENT PLAN: We will continue to monitor his behavior and his condition closely. Also, continue to work on his poor impulse control and agitation and also his compliance with taking his medications. JOB# [id number]
--- NOTE | 2019-02-25 19:06 | Internal Medicine Prog Note ---
Internal Medicine Subjective - Subjective Service Date: 02/25/19 Patient is:: awake, verbal, agitated, confused, other (still acting out.) Patient Complaints of:: constipation, bloated Per staff patient has:: no adverse event, no episodes of fall Internal Medicine Objective - Results Recent Labs: Laboratory Last Values Triglycerides 156 mg/dL (<150) H 02/23/19 06:20 Cholesterol 290 mg/dL (<200) H 02/23/19 06:20 LDL Cholesterol Direct 189 mg/dL (75-193) 02/23/19 06:20 HDL Cholesterol 67 mg/dL (23-92) 02/23/19 06:20 - Physical Exam Vitals and I&O: Vital Signs Temp 97.0 F 02/25/19 14:00 Pulse 72 02/25/19 14:00 Resp 20 02/25/19 14:00 BP 130/95 02/25/19 14:00 Pulse Ox 97 02/25/19 14:00 Intake & Output 02/25/19 02/25/19 02/26/19 06:59 18:59 06:59 Intake Total 120 1400 Balance 120 1400 Intake: Oral 120 1400 Other: # Voids 2 2 # Bowel Movements 0 0 Active Medications: Current Medications Acetaminophen (Tylenol) 650 mg PO Q4H PRN PRN Reason: Mild Pain/Headache/T above 101 Stop: 04/23/19 23:52 Last Admin: 02/23/19 21:56 Dose: 650 mg Al Hydrox/Mg Hydrox/Simethicone (Maalox) 30 ml PO Q6H PRN PRN Reason: Dyspepsia Stop: 04/23/19 23:52 Atorvastatin Calcium (Lipitor) 20 mg PO HS [facility]; Protocol Stop: 04/24/19 20:59 Last Admin: 02/24/19 20:58 Dose: Not Given Lorazepam (Ativan) 0.5 mg PO Q4HR PRN; Protocol PRN Reason: Anxiety Stop: 03/24/19 23:52 Magnesium Hydroxide (Milk Of Magnesia) 30 ml PO HS PRN PRN Reason: Constipation Olanzapine (Zyprexa) 5 mg PO BID [facility]; Protocol Stop: 04/25/19 02:59 Last Admin: 02/25/19 17:09 Dose: 5 mg Risperidone (Risperdal) 1 mg PO BID [facility]; Protocol Stop: 04/24/19 02:59 Last Admin: 02/25/19 17:08 Dose: 1 mg Tobramycin/Dexamethasone (Tobradex 0.1%-0.3% Ophth Susp 2.5ml) 2 drop EACH EYE TID [facility] Stop: 04/25/19 20:59 Last Admin: 02/25/19 13:37 Dose: 2 drop Trimethoprim/Sulfamethoxazole (Bactrim Ds) 1 tab PO BID [facility] Stop: 04/24/19 08:59 Last Admin: 02/25/19 17:09 Dose: 1 tab Zolpidem Tartrate (Ambien) 5 mg PO HS PRN PRN Reason: Insomnia Stop: 04/23/19 23:52 Last Admin: 02/23/19 21:55 Dose: 5 mg Physical Exam: 79 y/o male patient continues to be easily agitated and has still been acting out. General: demented HEENT: NC/AT Neck: Supple, No JVD Lungs: CTAB Cardiovascular: RRR, Normal S1 Abdomen: soft, non-tender Extremities: clear Neurological: no change, disorganized Internal Medicine Assmt/Plan - Assessment Assessment: Acute psychosis. Hypertension. Anxiety. Insomnia. Dyspepsia. Constipation. - Plan Plan: Continuation of care. Monitor Vitals, Labs. Continue present meds as directed. Monitor Diet/Nutritional support. Psych consult requested/Psych management. Pain Management. Safety precaution. Supportive care. Fall precaution, frequent nursing rounds, and as needed restraints to prevent fall. Continue collaborating with consulting specialists, case management and nursing team. Will Monitor patient and continue current treatment plan as ordered.
[2019-02-25] MEDS: Atorvastatin Calcium 10 MG TAB PO SCH (20:56)
[2019-02-26] MEDS: Sulfamethoxazole/TMP 800/160mg Tab PO SCH ×2 (09:21→17:17)
[2019-02-26] MEDS: Dexamethasone/Tobramycin Ophth Susp 2.5 mL Bottle EACH EYE SCH ×3 (09:22→20:55)
[2019-02-26] MEDS: Atorvastatin Calcium 10 MG TAB PO SCH (20:55)
--- NOTE | 2019-02-27 02:54 | Progress Notes ---
DATE: 02/26/2019 PSYCHIATRIC PROGRESS NOTE SUBJECTIVE: Chart was reviewed and the patient interviewed. Also discussed the patient's condition with the staff and reviewed records and labs. The patient is still anxious and is still in irritable mood and easily agitated. The patient also wants to be left alone. Also is still having mood swings and periods of irritability and anxiety. On the other hand, the patient is more compliant with taking his medications today after he was refusing to take any medications. Also, it seems to be slightly easier to redirect him. The patient denies any side effects of medications. ASSESSMENT: The patient is still agitated and still can be dangerous to others. TREATMENT PLAN: Continue to monitor his behavior and his condition closely. Also, continue adjusting psychotropic medications and work on behavioral modification. JOB# [id number]
[2019-02-27] MEDS: Sulfamethoxazole/TMP 800/160mg Tab PO SCH ×2 (09:42→17:30)
[2019-02-27] MEDS: Dexamethasone/Tobramycin Ophth Susp 2.5 mL Bottle EACH EYE SCH ×3 (09:45→20:47)
--- NOTE | 2019-02-27 11:31 | Internal Medicine Prog Note ---
Internal Medicine Subjective - Subjective Service Date: 02/27/19 Patient is:: awake, verbal, agitated, confused, other (still acting out, can be dangerous to others.) Patient Complaints of:: constipation, bloated Per staff patient has:: no adverse event, no episodes of fall Internal Medicine Objective - Results Recent Labs: Laboratory Last Values Triglycerides 156 mg/dL (<150) H 02/23/19 06:20 Cholesterol 290 mg/dL (<200) H 02/23/19 06:20 LDL Cholesterol Direct 189 mg/dL (75-193) 02/23/19 06:20 HDL Cholesterol 67 mg/dL (23-92) 02/23/19 06:20 - Physical Exam Vitals and I&O: Vital Signs Temp 97 F 02/27/19 07:01 Pulse 60 02/27/19 07:01 Resp 18 02/27/19 07:01 BP 117/64 02/27/19 07:01 Pulse Ox 96 02/27/19 07:01 Intake & Output 02/26/19 02/27/19 02/27/19 18:59 06:59 18:59 Intake Total 1100 480 Balance 1100 480 Intake: Oral 980 480 Other 120 Other: # Voids 3 1 # Bowel Movements 0 Stool Characteristics Soft Active Medications: Current Medications Acetaminophen (Tylenol) 650 mg PO Q4H PRN PRN Reason: Mild Pain/Headache/T above 101 Stop: 04/23/19 23:52 Last Admin: 02/23/19 21:56 Dose: 650 mg Al Hydrox/Mg Hydrox/Simethicone (Maalox) 30 ml PO Q6H PRN PRN Reason: Dyspepsia Stop: 04/23/19 23:52 Atorvastatin Calcium (Lipitor) 20 mg PO HS [facility]; Protocol Stop: 04/24/19 20:59 Last Admin: 02/26/19 20:55 Dose: 20 mg Lorazepam (Ativan) 0.5 mg PO Q4HR PRN; Protocol PRN Reason: Anxiety Stop: 03/24/19 23:52 Magnesium Hydroxide (Milk Of Magnesia) 30 ml PO HS PRN PRN Reason: Constipation Olanzapine (Zyprexa) 5 mg PO BID [facility]; Protocol Stop: 04/25/19 02:59 Last Admin: 02/27/19 09:42 Dose: 5 mg Risperidone (Risperdal) 1 mg PO BID [facility]; Protocol Stop: 04/24/19 02:59 Last Admin: 02/27/19 09:42 Dose: 1 mg Tobramycin/Dexamethasone (Tobradex 0.1%-0.3% Ophth Susp 2.5ml) 2 drop EACH EYE TID VINNY Stop: 04/25/19 20:59 Last Admin: 02/27/19 09:45 Dose: 2 drop Trimethoprim/Sulfamethoxazole (Bactrim Ds) 1 tab PO BID [facility] Stop: 04/24/19 08:59 Last Admin: 02/27/19 09:42 Dose: 1 tab Zolpidem Tartrate (Ambien) 5 mg PO HS PRN PRN Reason: Insomnia Stop: 04/23/19 23:52 Last Admin: 02/23/19 21:55 Dose: 5 mg Physical Exam: 79 y/o male patient continues to be easily agitated and has still been acting out. Patient needs to be monitored he can be dangerous to self and to others. General: demented HEENT: NC/AT Neck: Supple, No JVD Lungs: CTAB Cardiovascular: RRR, Normal S1 Abdomen: soft, non-tender Extremities: clear Neurological: no change, disorganized Internal Medicine Assmt/Plan - Assessment Assessment: Acute psychosis/can be dangerous to self and others. Hypertension. Anxiety. Insomnia. Dyspepsia. Constipation. - Plan Plan: Continuation of care. Monitor Vitals, Labs. Continue present meds as directed. Monitor Diet/Nutritional support. Psych consult requested/Psych management. Pain Management. Safety precaution. Supportive care. Fall precaution, frequent nursing rounds, and as needed restraints to prevent fall. Continue collaborating with consulting specialists, case management and nursing team. Will Monitor patient and continue current treatment plan as ordered. Nutritional Asmnt/Malnutr-PDOC - Dietary Evaluation Malnutrition Findings (Please click <Entered> for more info): Nutritional Asmnt/Malnutrition Start: 02/26/19 14: 05 Text: Status: Complete Freq: Protocol: Document 02/26/19 14:05 LCHENG (Rec: 02/26/19 14:30 LCHENG [id number]) Nutritional Asmnt/Malnutrition Patient General Information Nutritional Screening Moderate Risk Diagnosis psychosis Pertinent Medical Hx/Surgical Hx HTN, constipation, dyspepsia, psychosis, anxiety, insomnia Subjective Information Pt seen eating in dining room. Per EMR, PO intake 75-100%. Current Diet Order/ Nutrition Support [facility] soft Pertinent Medications lipitor Pertinent Labs 02/23 TG 156, Chol 290 Nutritional Hx/Data Height 1.8 m Height (Calculated Centimeters) 180.3 Current Weight (lbs) 90.718 kg Weight (Calculated Kilograms) 90.7 Weight (Calculated Grams) 81764.5 [place] Body Weight 172 Body Mass Index (BMI) 27.8 Weight Status Overweight GI Symptoms GI Symptoms None Last BM 02/24 Difficult in: None Skin Integrity/Comment: laceration to right hand, skin tear to left hand. navin 15 Current %PO Good (75-100%) Estimated Nutritional Goals BEE in Kcals: Using Current wt Calories/Kcals/Kg 23-27 Kcals Calculated 0620-9964 Protein: Using Current wt Protein g/k.8-1 Protein Calculated 56-71 Fluid: ml 2092-1916ml (1ml/kcal) Nutritional Problem No current Nutrition Prob Problem N/A Malnutrition Alert Is there a minimum of two criteria No selected? Query Text:Check all the applicable criteria. A minimum of two criteria are recommended for diagnosis of either severe or non-severe malnutrition. Malnutrition Related to Morbid Obesity Malnutrition related to morbid obesity No Intervention/Recommendation Comments 1. Continue with [facility] soft diet as ordered. 2. Monitor PO intake, wt, labs and skin integrity 3. F/U as low risk in 7 days Expected Outcomes/Goals Expected Outcomes/Goals 1. PO intake to meet at least 75% of nutritional needs. 2. Wt stability, skin to remain intact, labs to approach WNL.
[2019-02-27] MEDS: Atorvastatin Calcium 10 MG TAB PO SCH (20:46)
--- NOTE | 2019-02-27 21:45 | Progress Notes ---
DATE: 02/27/2019 The patient is an 79-year-old male coming from the ICU apparently acting to be redirected. On [id number], the patient refusing to speak with me. Per notes over the last few days, Dr. Escobar noting that patient remains irritable, agitated, impulsive, unpredictable, ongoing irritability, still can be aggressive and concerns for safety. Per nursing staff, he is pretty confused, disoriented. PLAN: We will continue to monitor. The patient poorly oriented, concerns he may strike out. Given poor impulse control, irritability. Medications were reviewed. JOB# [id number]
[2019-02-28] MEDS: Dexamethasone/Tobramycin Ophth Susp 2.5 mL Bottle EACH EYE SCH ×4 (09:17→21:29)
[2019-02-28] MEDS: Sulfamethoxazole/TMP 800/160mg Tab PO SCH ×3 (09:17→17:06)
[2019-02-28] MEDS: Atorvastatin Calcium 10 MG TAB PO SCH (21:28)
--- NOTE | 2019-02-28 22:25 | Progress Notes ---
DATE: 02/28/2019 SUBJECTIVE: The patient admitted to the hospital, fully oriented, very hard of hearing, sleeping and arousable. Staff monitoring for agitation, any threatening behaviors, tendency to refuse medications, believing it is not the medications, ongoing bouts of confusion, poor orientation, not wanting to talk to me this morning. Medications were noted. PLAN: We will continue to monitor ongoing behavioral disturbances, currently on Zyprexa, Risperdal. We will discontinue the Zyprexa to decrease side effect burdens of being on two antipsychotic medications. JOB# [id number]
[2019-03-01] MEDS: Dexamethasone/Tobramycin Ophth Susp 2.5 mL Bottle EACH EYE SCH ×2 (15:08→20:59)
[2019-03-01] MEDS: Sulfamethoxazole/TMP 800/160mg Tab PO SCH ×2 (15:08→16:33)
--- NOTE | 2019-03-01 19:24 | Progress Notes ---
DATE: 03/01/2019 SUBJECTIVE: Chart was reviewed and the patient interviewed. Also discussed the patient's condition with the staff and reviewed records and labs. The patient is still having episodes of severe anger and irritability. Also easily agitated. The patient also is suspicious and is paranoid. He also gets angry, but slightly easier to redirect him. The patient denies any side effects of medications and he is more compliant with taking his medications. ASSESSMENT: The patient is still agitated and can be dangerous to others. TREATMENT PLAN: We will continue to monitor his behavior and his condition closely. Also, we will increase Risperdal to 2 mg twice a day and we will continue to follow up. JOB# [id number]
[2019-03-01] MEDS: Atorvastatin Calcium 10 MG TAB PO SCH (21:09)
[2019-03-02] MEDS: Sulfamethoxazole/TMP 800/160mg Tab PO SCH ×2 (08:32→16:30)
[2019-03-02] MEDS: Atorvastatin Calcium 10 MG TAB PO SCH (20:34)
--- NOTE | 2019-03-03 02:09 | Progress Notes ---
DATE: 03/02/[address] Escobar. Case was discussed with staff of the patient, reviewed records. This is a well-known case to me. I have seen him before. I did make an admission for him covering for Dr. Escobar last week. The patient continues to have history of severe anger, continues to be irritable, easily agitated, suspicious, paranoid. He is compliant with the medication with no side effects. ____ twice a day. No side effects, no sedation, no nausea, no extrapyramidal symptoms. We will continue outpatient group therapy, milieu therapy, adjust medication as needed. [facility]# [id number]
--- NOTE | 2019-03-03 11:32 | Internal Medicine Prog Note ---
Internal Medicine Subjective - Subjective Service Date: 03/03/19 Patient seen and examined:: with staff Patient is:: awake, verbal, agitated, confused, other (still acting out, can be dangerous to others.) Patient Complaints of:: constipation, bloated Per staff patient has:: no adverse event, no episodes of fall Internal Medicine Objective - Results Recent Labs: Laboratory Last Values Triglycerides 156 mg/dL (<150) H 02/23/19 06:20 Cholesterol 290 mg/dL (<200) H 02/23/19 06:20 LDL Cholesterol Direct 189 mg/dL (75-193) 02/23/19 06:20 HDL Cholesterol 67 mg/dL (23-92) 02/23/19 06:20 - Physical Exam Vitals and I&O: Vital Signs Temp 98.4 F 03/02/19 20:27 Pulse 72 03/02/19 20:27 Resp 19 03/02/19 20:27 BP 126/68 03/02/19 20:27 Pulse Ox 98 03/02/19 20:27 Intake & Output 03/02/19 03/03/19 03/03/19 18:59 06:59 18:59 Intake Total 950 120 Balance 950 120 Intake: Oral 950 120 Other: # Voids 4 2 # Bowel Movements 0 0 Active Medications: Current Medications Acetaminophen (Tylenol) 650 mg PO Q4H PRN PRN Reason: Mild Pain/Headache/T above 101 Stop: 04/23/19 23:52 Last Admin: 02/23/19 21:56 Dose: 650 mg Al Hydrox/Mg Hydrox/Simethicone (Maalox) 30 ml PO Q6H PRN PRN Reason: Dyspepsia Stop: 04/23/19 23:52 Atorvastatin Calcium (Lipitor) 20 mg PO HS [facility]INNY; Protocol Stop: 04/24/19 20:59 Last Admin: 03/02/19 20:34 Dose: 20 mg Lorazepam (Ativan) 0.5 mg PO Q4HR PRN; Protocol PRN Reason: Anxiety Stop: 03/24/19 23:52 Magnesium Hydroxide (Milk Of Magnesia) 30 ml PO HS PRN PRN Reason: Constipation Risperidone (Risperdal) 2 mg PO BID [facility]; Protocol Stop: 04/30/19 08:59 Last Admin: 03/02/19 16:33 Dose: 2 mg Zolpidem Tartrate (Ambien) 5 mg PO HS PRN PRN Reason: Insomnia Stop: 04/23/19 23:52 Last Admin: 03/01/19 21:09 Dose: 5 mg Physical Exam: 79 y/o male patient continues to be easily agitated, very angry and has still been acting out. Patient needs to be monitored he can be dangerous to self and to others. General: demented HEENT: NC/AT Neck: Supple, No JVD Lungs: CTAB Cardiovascular: RRR, Normal S1 Abdomen: soft, non-tender Extremities: clear Neurological: no change, disorganized Internal Medicine Assmt/Plan - Assessment Assessment: Acute psychosis/can be dangerous to self and others. Hypertension. Anxiety. Insomnia. Dyspepsia. Constipation. - Plan Plan: Continuation of care. Monitor Vitals, Labs. Continue present meds as directed. Monitor Diet/Nutritional support. Psych consult requested/Psych management. Pain Management. Safety precaution. Supportive care. Fall precaution, frequent nursing rounds, and as needed restraints to prevent fall. Continue collaborating with consulting specialists, case management and nursing team. Will Monitor patient and continue current treatment plan as ordered. Nutritional Asmnt/Malnutr-PDOC - Dietary Evaluation Malnutrition Findings (Please click <Entered> for more info): Nutritional Asmnt/Malnutrition Start: 02/26/19 14: 05 Text: Status: Complete Freq: Protocol: Document 02/26/19 14:05 LCHENG (Rec: 02/26/19 14:30 LCHENG [id number]) Nutritional Asmnt/Malnutrition Patient General Information Nutritional Screening Moderate Risk Diagnosis psychosis Pertinent Medical Hx/Surgical Hx HTN, constipation, dyspepsia, psychosis, anxiety, insomnia Subjective Information Pt seen eating in dining room. Per EMR, PO intake 75-100%. Current Diet Order/ Nutrition Support [facility] soft Pertinent Medications lipitor Pertinent Labs 02/23 TG 156, Chol 290 Nutritional Hx/Data Height 1.8 m Height (Calculated Centimeters) 180.3 Current Weight (lbs) 90.718 kg Weight (Calculated Kilograms) 90.7 Weight (Calculated Grams) 86072.5 [place] Body Weight 172 Body Mass Index (BMI) 27.8 Weight Status Overweight GI Symptoms GI Symptoms None Last BM 02/24 Difficult in: None Skin Integrity/Comment: laceration to right hand, skin tear to left hand. navin 15 Current %PO Good (75-100%) Estimated Nutritional Goals BEE in Kcals: Using Current wt Calories/Kcals/Kg 23-27 Kcals Calculated Protein: Using Current wt Protein g/k.8-1 Protein Calculated 56-71 Fluid: ml 2092-1916ml (1ml/kcal) Nutritional Problem No current Nutrition Prob Problem N/A Malnutrition Alert Is there a minimum of two criteria No selected? Query Text:Check all the applicable criteria. A minimum of two criteria are recommended for diagnosis of either severe or non-severe malnutrition. Malnutrition Related to Morbid Obesity Malnutrition related to morbid obesity No Intervention/Recommendation Comments 1. Continue with [facility] soft diet as ordered. 2. Monitor PO intake, wt, labs and skin integrity 3. F/U as low risk in 7 days Expected Outcomes/Goals Expected Outcomes/Goals 1. PO intake to meet at least 75% of nutritional needs. 2. Wt stability, skin to remain intact, labs to approach WNL.
[2019-03-03] MEDS: Atorvastatin Calcium 10 MG TAB PO SCH (20:51)
--- NOTE | 2019-03-03 23:06 | Progress Notes ---
DATE: 03/03/2019 FOLLOWUP PROGRESS NOTE PROGRESS ON THE UNIT: Case discussed with staff of the patient, reviewed the records. The patient continues to be internally preoccupied, easily agitated, irritable. He is unable to carry on a conversation or make a safe plan for self-care. He is sleeping better, eating better. He has been compliant with the medication with no side effects, no sedation, no nausea, no extrapyramidal symptoms. We will continue to work with the patient in group therapy and milieu therapy, adjust the medication as needed. JOB# [id number]
--- NOTE | 2019-03-04 18:24 | Progress Notes ---
DATE: 03/04/2019 SUBJECTIVE: Chart reviewed and the patient interviewed. Also discussed the patient's condition with the staff and reviewed records and labs. The patient is still in a depressed mood and is still having episodes of irritability and anger. The patient also is still confused and forgetful and has difficulty expressing herself because of his confusion and irritability. The patient also is interacting minimally with others, on the other hand decreased aggressive behavior and not as agitated. The patient also is compliant with taking his medications. ASSESSMENT: The patient is still agitated and is still aggressive. TREATMENT PLAN: Continue to monitor his behavior and his condition closely. Also, continue adjusting psychotropic medications. No side effects of Risperdal that was increased to 2 mg twice a day and continue same dose and continue to work on behavioral modifications and follow up closely. [facility]# [id number]
--- NOTE | 2019-03-04 18:28 | Internal Medicine Prog Note ---
Internal Medicine Subjective - Subjective Service Date: 03/04/19 Patient is:: awake, verbal, agitated, confused, other (still acting out, can be dangerous to others.) Patient Complaints of:: constipation, bloated Per staff patient has:: no adverse event, no episodes of fall Internal Medicine Objective - Results Recent Labs: Laboratory Last Values Triglycerides 156 mg/dL (<150) H 02/23/19 06:20 Cholesterol 290 mg/dL (<200) H 02/23/19 06:20 LDL Cholesterol Direct 189 mg/dL (75-193) 02/23/19 06:20 HDL Cholesterol 67 mg/dL (23-92) 02/23/19 06:20 - Physical Exam Vitals and I&O: Vital Signs Temp 96.6 F 03/04/19 14:00 Pulse 62 03/04/19 14:00 Resp 18 03/04/19 14:00 BP 102/61 03/04/19 14:00 Pulse Ox 95 03/04/19 14:00 Intake & Output 03/03/19 03/04/19 03/04/19 18:59 06:59 18:59 Intake Total 8752 706 4404 Balance 1015 636 4340 Intake: Oral 1493 311 9390 Other: # Voids 5 3 2 # Bowel Movements 0 0 Active Medications: Current Medications Acetaminophen (Tylenol) 650 mg PO Q4H PRN PRN Reason: Mild Pain/Headache/T above 101 Stop: 04/23/19 23:52 Last Admin: 02/23/19 21:56 Dose: 650 mg Al Hydrox/Mg Hydrox/Simethicone (Maalox) 30 ml PO Q6H PRN PRN Reason: Dyspepsia Stop: 04/23/19 23:52 Atorvastatin Calcium (Lipitor) 20 mg PO HS [facility]; Protocol Stop: 04/24/19 20:59 Last Admin: 03/03/19 20:51 Dose: 20 mg Lorazepam (Ativan) 0.5 mg PO Q4HR PRN; Protocol PRN Reason: Anxiety Stop: 03/24/19 23:52 Magnesium Hydroxide (Milk Of Magnesia) 30 ml PO HS PRN PRN Reason: Constipation Risperidone (Risperdal) 2 mg PO BID [facility]; Protocol Stop: 04/30/19 08:59 Last Admin: 03/04/19 08:10 Dose: 2 mg Zolpidem Tartrate (Ambien) 5 mg PO HS PRN PRN Reason: Insomnia Stop: 04/23/19 23:52 Last Admin: 03/03/19 20:51 Dose: 5 mg General: demented HEENT: NC/AT Neck: Supple, No JVD Lungs: CTAB Cardiovascular: RRR, Normal S1 Abdomen: soft, non-tender Extremities: clear Neurological: no change, disorganized Internal Medicine Assmt/Plan - Assessment Assessment: Acute psychosis/can be dangerous to self and others. Hypertension. Anxiety. Insomnia. Dyspepsia. Constipation. - Plan Plan: fall precautions cpm Nutritional Asmnt/Malnutr-PDOC - Dietary Evaluation Malnutrition Findings (Please click <Entered> for more info): Nutritional Asmnt/Malnutrition Start: 02/26/19 14: 05 Text: Status: Complete Freq: Protocol: Document 02/26/19 14:05 TONEY (Rec: 02/26/19 14:30 TONEYG [id number]) Nutritional Asmnt/Malnutrition Patient General Information Nutritional Screening Moderate Risk Diagnosis psychosis Pertinent Medical Hx/Surgical Hx HTN, constipation, dyspepsia, psychosis, anxiety, insomnia Subjective Information Pt seen eating in dining room. Per EMR, PO intake 75-100%. Current Diet Order/ Nutrition Support [facility] soft Pertinent Medications lipitor Pertinent Labs 02/23 TG 156, Chol 290 Nutritional Hx/Data Height 5 ft 11 in Height (Calculated Centimeters) 180.3 Current Weight (lbs) 200 lb Weight (Calculated Kilograms) 90.7 Weight (Calculated Grams) 28721.5 [place] Body Weight 172 Body Mass Index (BMI) 27.8 Weight Status Overweight GI Symptoms GI Symptoms None Last BM 02/24 Difficult in: None Skin Integrity/Comment: laceration to right hand, skin tear to left hand. navin 15 Current %PO Good (75-100%) Estimated Nutritional Goals BEE in Kcals: Using Current wt Calories/Kcals/Kg 23-27 Kcals Calculated 7280-6514 Protein: Using Current wt Protein g/k.8-1 Protein Calculated 56-71 Fluid: ml 2092-1916ml (1ml/kcal) Nutritional Problem No current Nutrition Prob Problem N/A Malnutrition Alert Is there a minimum of two criteria No selected? Query Text:Check all the applicable criteria. A minimum of two criteria are recommended for diagnosis of either severe or non-severe malnutrition. Malnutrition Related to Morbid Obesity Malnutrition related to morbid obesity No Intervention/Recommendation Comments 1. Continue with [facility] soft diet as ordered. 2. Monitor PO intake, wt, labs and skin integrity 3. F/U as low risk in 7 days Expected Outcomes/Goals Expected Outcomes/Goals 1. PO intake to meet at least 75% of nutritional needs. 2. Wt stability, skin to remain intact, labs to approach WNL.
[2019-03-04] MEDS: Atorvastatin Calcium 10 MG TAB PO SCH (21:28)
--- NOTE | 2019-03-05 06:31 | Progress Notes ---
DATE: SUBJECTIVE: Chart reviewed and the patient interviewed. Also discussed the patient's condition with the staff and reviewed records and labs. The patient is still confused and is forgetful. The patient also still needs redirections. The patient continued to take Risperdal in a dose of 2 mg twice a day, but he is still having episodes of severe agitation and irritability and needed redirections because of his confusion. ASSESSMENT: The patient is still confused and needs lots of redirections. TREATMENT PLAN: Continue to monitor his behavior and his condition closely. Also, we will increase Risperdal to 2.5 mg twice a day and continue to follow up closely and continue to work on behavioral modification. [facility]# [id number]
--- NOTE | 2019-03-05 11:10 | Internal Medicine Prog Note ---
Internal Medicine Subjective - Subjective Service Date: 03/05/19 Patient seen and examined:: with staff Patient is:: awake, verbal, agitated, confused, other (still acting out, can be dangerous to others.) Patient Complaints of:: constipation, bloated Per staff patient has:: no adverse event, no episodes of fall Internal Medicine Objective - Results Recent Labs: Laboratory Last Values Triglycerides 156 mg/dL (<150) H 02/23/19 06:20 Cholesterol 290 mg/dL (<200) H 02/23/19 06:20 LDL Cholesterol Direct 189 mg/dL (75-193) 02/23/19 06:20 HDL Cholesterol 67 mg/dL (23-92) 02/23/19 06:20 - Physical Exam Vitals and I&O: Vital Signs Temp 97 F 03/05/19 06:10 Pulse 60 03/05/19 06:10 Resp 18 03/05/19 06:10 BP 129/78 03/05/19 06:10 Pulse Ox 97 03/05/19 06:10 Intake & Output 03/04/19 03/05/19 03/05/19 18:59 06:59 18:59 Intake Total 1200 120 Balance 1200 120 Intake: Oral 1200 120 Other: # Voids 2 3 # Bowel Movements 0 Active Medications: Current Medications Acetaminophen (Tylenol) 650 mg PO Q4H PRN PRN Reason: Mild Pain/Headache/T above 101 Stop: 04/23/19 23:52 Last Admin: 02/23/19 21:56 Dose: 650 mg Al Hydrox/Mg Hydrox/Simethicone (Maalox) 30 ml PO Q6H PRN PRN Reason: Dyspepsia Stop: 04/23/19 23:52 Atorvastatin Calcium (Lipitor) 20 mg PO HS VINNY; Protocol Stop: 04/24/19 20:59 Last Admin: 03/04/19 21:28 Dose: 20 mg Lorazepam (Ativan) 0.5 mg PO Q4HR PRN; Protocol PRN Reason: Anxiety Stop: 03/24/19 23:52 Magnesium Hydroxide (Milk Of Magnesia) 30 ml PO HS PRN PRN Reason: Constipation Risperidone (Risperdal) 2.5 mg PO BID VINNY; Protocol Stop: 05/04/19 08:59 Last Admin: 03/05/19 09:56 Dose: 2.5 mg Zolpidem Tartrate (Ambien) 5 mg PO HS PRN PRN Reason: Insomnia Stop: 04/23/19 23:52 Last Admin: 03/04/19 21:28 Dose: 5 mg Physical Exam: 79 y/o male patient is agitated, very upset and has still been acting out. Patient needs redirection. Patient needs to be monitored he can be dangerous to self and to others. General: demented HEENT: NC/AT Neck: Supple, No JVD Lungs: CTAB Cardiovascular: RRR, Normal S1 Abdomen: soft, non-tender Extremities: clear Neurological: no change, disorganized Internal Medicine Assmt/Plan - Assessment Assessment: Acute psychosis/can be dangerous to self and others. Hypertension. Anxiety. Insomnia. Dyspepsia. Constipation. - Plan Plan: Continuation of care. Monitor Vitals, Labs. Continue present meds as directed. Monitor Diet/Nutritional support. Psych consult requested/Psych management. Pain Management. Safety precaution. Supportive care. Fall precaution, frequent nursing rounds, and as needed restraints to prevent fall. Continue collaborating with consulting specialists, case management and nursing team. Will Monitor patient and continue present care management. Nutritional Asmnt/Malnutr-PDOC - Dietary Evaluation Malnutrition Findings (Please click <Entered> for more info): Nutritional Asmnt/Malnutrition Start: 02/26/19 14: 05 Text: Status: Complete Freq: Protocol: Document 02/26/19 14:05 LCHENG (Rec: 02/26/19 14:30 LCHENG [id number]) Nutritional Asmnt/Malnutrition Patient General Information Nutritional Screening Moderate Risk Diagnosis psychosis Pertinent Medical Hx/Surgical Hx HTN, constipation, dyspepsia, psychosis, anxiety, insomnia Subjective Information Pt seen eating in dining room. Per EMR, PO intake 75-100%. Current Diet Order/ Nutrition Support [facility] soft Pertinent Medications lipitor Pertinent Labs 02/23 TG 156, Chol 290 Nutritional Hx/Data Height 1.8 m Height (Calculated Centimeters) 180.3 Current Weight (lbs) 90.718 kg Weight (Calculated Kilograms) 90.7 Weight (Calculated Grams) 69425.5 [place] Body Weight 172 Body Mass Index (BMI) 27.8 Weight Status Overweight GI Symptoms GI Symptoms None Last BM 02/24 Difficult in: None Skin Integrity/Comment: laceration to right hand, skin tear to left hand. navin 15 Current %PO Good (75-100%) Estimated Nutritional Goals BEE in Kcals: Using Current wt Calories/Kcals/Kg 23-27 Kcals Calculated Protein: Using Current wt Protein g/k.8-1 Protein Calculated 56-71 Fluid: ml 2092-1916ml (1ml/kcal) Nutritional Problem No current Nutrition Prob Problem N/A Malnutrition Alert Is there a minimum of two criteria No selected? Query Text:Check all the applicable criteria. A minimum of two criteria are recommended for diagnosis of either severe or non-severe malnutrition. Malnutrition Related to Morbid Obesity Malnutrition related to morbid obesity No Intervention/Recommendation Comments 1. Continue with [facility] soft diet as ordered. 2. Monitor PO intake, wt, labs and skin integrity 3. F/U as low risk in 7 days Expected Outcomes/Goals Expected Outcomes/Goals 1. PO intake to meet at least 75% of nutritional needs. 2. Wt stability, skin to remain intact, labs to approach WNL.
[2019-03-05] MEDS: Atorvastatin Calcium 10 MG TAB PO SCH (20:20)
--- NOTE | 2019-03-06 08:16 | Progress Notes ---
DATE: 03/06/2019 DATE OF SERVICE: 03/06/2019 SUBJECTIVE: The patient was seen in his room. The patient is asleep, but easily arousable. The patient appears to be guarded, confused, and easily gets frustrated and irritable. The patient still has a lot of confusion and needs frequent redirection. Otherwise, the patient appears to be in no acute distress. OBJECTIVE: Vital signs: Temperature 97.6, heart rate 61, blood pressure 102/59, respirations 19, 94% on room air. HEENT: Head is atraumatic and normocephalic. EYES: Bilateral conjunctivae are clear. Bilateral pupils are equally round and reactive. NECK: Supple. No JVD. CARDIOVASCULAR: S1 and S2, without murmur. PULMONARY: Clear to auscultation. GASTROINTESTINAL: Soft and nontender without guarding. Positive bowel sounds. MUSCULOSKELETAL: No clubbing. No cyanosis noted. ASSESSMENT: 1. Psychosis. 2. Hypertension. 3. Hyperlipidemia. PLAN: We will keep the patient to Inpatient Psychiatric Unit. We will follow up with a psychiatrist to monitor the patient's condition and behavior. Treatment plans were discussed with the patient's nurse. Treatment plans were discussed with Dr. Gold. JOB# [id number]
--- NOTE | 2019-03-07 11:38 | Discharge Summary ---
DATE OF DISCHARGE: 03/06/2019 FINAL DIAGNOSIS AND PRIMARY DIAGNOSIS: Unspecified psychosis. SECONDARY DIAGNOSIS: Dementia, moderate, with psychotic features and behavioral disturbances. MEDICAL DIAGNOSIS: Hypertension. REASON FOR HOSPITALIZATION: The patient was admitted to the hospital because of increased agitation and irritability and was unable to follow any directions and was aggressive with peers and staff. HOSPITAL COURSE: The patient continued to be agitated and in irritable mood. The patient also was extremely aggressive and fighting with the staff and getting physical with them, especially during helping him with his ADLs. The patient was monitored closely and he was given Risperdal and the dose adjusted to 2 mg twice a day. The patient was slightly calmer and was less agitated. The patient developed hypotension and the patient went to ICU to be followed there. EXPECTED OUTCOME AFTER DISCHARGE: Depends on course in ICU, but for the time being we will hold psychotropics for further recommendations while in ICU. [facility]# [id number]
== END 2019-03-06 15:12 | disposition short-term general hospital (02) | DRG 885 ==
LOC: GERO 16:53
PROVIDERS: ADMIT Psychiatry & Neurology Psychiatry; ATTEND Psychiatry & Neurology Psychiatry
DX: F23 Brief psychotic disorder (principal); F03.91 Unspecified dementia, unspecified severity, with behavioral disturbance; I10 Essential (primary) hypertension; R10.13 Epigastric pain; G47.00 Insomnia, unspecified; F41.9 Anxiety disorder, unspecified; K59.00 Constipation, unspecified
CPT/HCPCS: 36415-UA; 80061-TC; 83036-90; 97530; G0410; J7051; X3904; Z7610

== ENCOUNTER 2019-03-06 15:12 | Inpatient (IN) | payer MEDICARE, OTHER ==
[2019-03-06] MEDS ORDERED: D5-0.45NS 1,000 ML IV SCH (16:38)
[2019-03-06] MEDS ORDERED: Sodium Chloride 0.9% 1,000 ML IV ONE (16:39)
[2019-03-06 17:12] LABS: % BASOPHILS 0.8 % (0.0-2.0); % LYMPHOCYTES 30.3 % (20.0-50.0); % MONOCYTES 6.1 % (2.0-10.0); % NEUTROPHILS 59.8 % (40.0-80.0); EOSINOPHILE ABSOLUTE 0.1 Th/cmm (0.1-0.4); HEMATOCRIT 34.4 % (41.0-60); HEMOGLOBIN 11.5 gm/dL (12-16); LYMPHOCYTE ABSOLUTE 1.5 Th/cmm (1.5-3.0); MEAN CELL VOLUME 96.2 fl (80-99); MEAN CORPUSCULAR HEMOGLOBIN 32.3 pg (27.0-31.0); MEAN CORPUSCULAR HGB CONC 33.5 pg (28.0-36.0); MONOCYTE ABSOLUTE 0.3 Th/cmm (0.3-1.0); NEUTROPHILE ABSOLUTE 3.1 Th/cmm (1.8-8.0); PLATELET COUNT 189 Th/cmm (150-400); RED BLOOD COUNT 3.58 Mil/cmm (3.80-5.80); RED CELL DISTRIBUTION WIDTH 14.8 % (11.5-20.0)
[2019-03-06 17:24] LABS: ALBUMIN 4.2 gm/dL (4.2-5.5); ALKALINE PHOSPHATASE 63 U/L (34-104); ANION GAP 11.3 (7.0-16.0); BILIRUBIN,TOTAL 0.3 mg/dL (0.3-1.0); BUN - UREA NITROGEN 23 mg/dL (7-25); CALCIUM SERUM 9.5 mg/dL (8.6-10.3); CARBON DIOXIDE 26.8 mEq/L (21.0-31.0); CHLORIDE 96 mEq/L (98-107); CREATININE - SERUM 0.9 mg/dL (0.7-1.3); GLUCOSE 85 mg/dL (70-105); POTASSIUM SERUM 4.1 mEq/L (3.5-5.1); SGOT 52 U/L (13-39); SGPT/ALT 39 U/L (7-52); SODIUM SERUM 130 mEq/L (136-145); TOTAL PROTEIN,SERUM 6.3 gm/dL (6.0-8.3)
--- NOTE | 2019-03-06 17:49 | Progress Notes ---
DATE: SUBJECTIVE: Chart was reviewed and the patient interviewed. Also discussed the patient's condition with the staff and reviewed records and labs. The patient is still irritable and agitated and it seems that the patient is becoming more agitated last night and today. The patient also still has difficulty sleeping at night and the patient did not sleep well last night. Also is still in angry and irritable mood and is still suspicious and paranoid. Also, still needs lots of redirections. Otherwise, the patient is compliant with taking medications with no side effects of medications. ASSESSMENT: The patient is still psychotic and agitated. TREATMENT PLAN: Continue to monitor his behavior and condition closely. Also, continue adjusting psychotropic medications and working on behavioral modification. [facility]# [id number]
[2019-03-06] MEDS ORDERED: Piperacillin Sodium/Tazobact 2.25 gm Vial IV ONE (22:45)
[2019-03-07] MEDS ORDERED: Sodium Chloride 0.9% 1,000 ML IV ONE (00:32)
[2019-03-07] MEDS ORDERED: Sodium Chloride 0.9% 1,000 ML IV SCH (00:34)
[2019-03-07] MEDS ORDERED: Norepinephrine 4 mg/4mL Vial IV ONE ×3 (01:13→04:11)
[2019-03-07 01:31] LABS: URINE SOURCE FOLEY PORT
[2019-03-07 01:33] LABS: URINE BILIRUBIN NEGATIVE (NEGATIVE); URINE BLOOD LARGE (NEGATIVE); URINE GLUCOSE (UA) NEGATIVE (NEGATIVE); URINE KETONE NEGATIVE (NEGATIVE); URINE LEUKOCYTE ESTERASE SMALL (NEGATIVE); URINE MICROSCOPIC INDICATED? YES; URINE NITRATE NEGATIVE (NEGATIVE); URINE PH 5.5 (4.6 - 8.0); URINE PROTEIN 30 mg/dL (NEGATIVE); URINE UROBILINOGEN 0.2 E.U./dL (0.2 - 1.0)
[2019-03-07] MEDS: Sodium Chloride 0.9% 1,000 ML IV SCH ×2 (01:36→15:40)
[2019-03-07 01:44] LABS: URINE COLOR PINK
[2019-03-07 01:45] LABS: URINE CLARITY HAZY (CLEAR)
[2019-03-07 01:46] LABS: URINE BACTERIA NONE SEEN /hpf (NONE SEEN); URINE EPITHELIAL CELLS NONE SEEN /lpf (FEW)
[2019-03-07] MEDS ORDERED: Piperacillin Sodium/Tazobact 2.25 gm Vial IV ONE (04:12)
[2019-03-07 05:31] LABS: ALBUMIN 3.7 gm/dL (4.2-5.5); ALKALINE PHOSPHATASE 56 U/L (34-104); ANION GAP 11.6 (7.0-16.0); BILIRUBIN,TOTAL 0.3 mg/dL (0.3-1.0); BUN - UREA NITROGEN 22 mg/dL (7-25); CALCIUM SERUM 8.5 mg/dL (8.6-10.3); CARBON DIOXIDE 22.8 mEq/L (21.0-31.0); CHLORIDE 100 mEq/L (98-107); GLUCOSE 116 mg/dL (70-105); INR 0.99 (0.5-1.4); POTASSIUM SERUM 4.4 mEq/L (3.5-5.1); SGOT 47 U/L (13-39); SGPT/ALT 33 U/L (7-52); SODIUM SERUM 130 mEq/L (136-145); TOTAL PROTEIN,SERUM 5.6 gm/dL (6.0-8.3)
[2019-03-07 05:39] LABS: % BASOPHILS 0.3 % (0.0-2.0); % EOSINOPHILS 2.7 % (0.0-5.0); % LYMPHOCYTES 28.1 % (20.0-50.0); % MONOCYTES 5.7 % (2.0-10.0); % NEUTROPHILS 63.2 % (40.0-80.0); EOSINOPHILE ABSOLUTE 0.1 Th/cmm (0.1-0.4); HEMATOCRIT 33.3 % (41.0-60); HEMOGLOBIN 11.1 gm/dL (12-16); LYMPHOCYTE ABSOLUTE 1.5 Th/cmm (1.5-3.0); MEAN CELL VOLUME 97.4 fl (80-99); MEAN CORPUSCULAR HEMOGLOBIN 32.5 pg (27.0-31.0); MEAN CORPUSCULAR HGB CONC 33.4 pg (28.0-36.0); MONOCYTE ABSOLUTE 0.3 Th/cmm (0.3-1.0); NEUTROPHILE ABSOLUTE 3.6 Th/cmm (1.8-8.0); PLATELET COUNT 180 Th/cmm (150-400); RED BLOOD COUNT 3.42 Mil/cmm (3.80-5.80); RED CELL DISTRIBUTION WIDTH 14.7 % (11.5-20.0); WHITE BLOOD COUNT 5.5 Th/cmm (4.8-10.8)
[2019-03-07 06:57] VITALS: BP 78/43
[2019-03-07] MEDS: Dexamethasone/Tobramycin Ophth Susp 2.5 mL Bottle EACH EYE SCH ×2 (08:24→18:23)
--- NOTE | 2019-03-07 10:24 | Diagnostic Imaging Report ---
Portable chest x-ray HISTORY: Shortness of breath The heart appears enlarged. There is a poor inspiration with slight elevation left hemidiaphragm. No acute focal pulmonary processes. Cardiac pacemaker lead wires project over the right atrium and right ventricle. IMPRESSION: 1. No acute pulmonary processes 2. Cardiomegaly
--- NOTE | 2019-03-07 15:33 | Consultation ---
Consult Note - Consult Note Service Date: 03/07/19 Referring Physician: William Gold Consult Note: PHYSICIAN Consultation Note: Date of Admission: 03/06/19 Purpose of Consultation: Chief Complaint: Patient KAILEY BENOIT was admitted to location Intensive Care Unit with DEHYDRATION, LOW BP. History of Present Illness: 79 year old female with history of HTN admitted to the [facility] unit for agitation on 02/16/2019. He was transferred to the medicall floor for hypotension. He was discharged back to the medical center again. Yesterday, he wbecame hypotensive and treansferred to tele yesterday. Sepsis w/u was performed and ID consult was called. He was started on vancomycin and Zosyn. He became hypotensive at night so 1 liter NS bolus was performed and put on levophed. He was transferred to the ICU. Past Medical History: HTN, anxiety disorder and depression. Allergies Allergy/AdvReac Type Severity Reaction Status Date / Time No Known Allergies Allergy Verified 02/16/19 14:14 Vital Signs Temp 97.2 F 03/07/19 12:00 Pulse 62 03/07/19 15:00 Resp 12 03/07/19 15:00 BP 111/71 03/07/19 15:00 Pulse Ox 100 03/07/19 15:00 Intake & Output 03/06/19 03/07/19 03/07/19 18:59 06:59 18:59 Intake Total 1000 661.506 495.553 Output Total 350 Balance 1000 311.506 495.553 Weight (lbs) 87.317 kg Intake: Intake, IV Amount 1000 661.506 495.553 Norepinephrine 4 mg In 179.707 Dextrose 5% 250 ml @ 5 MCG/MIN 19.05 mls/hr IV TITR PRN Rx#:[id number] Norepinephrine 8 mg In 29.799 195.553 Dextrose 5% 250 ml @ Per Protocol IV PRN PRN Rx#: [id number] Piperacillin Sodium/ 100 50 Tazobact 2.25 gm In Sodium Chloride 0.9% 50 ml @ 100 mls/hr IV Q8HR VINNY Rx#:[id number] Sodium Chloride 0.9% 1, 352 000 ml @ 80 mls/hr IV . [id number] [facility] Rx#:[id number] Vancomycin HCl 1 gm In 250 Sodium Chloride 0.9% 250 ml @ 165 mls/hr IV Q12H [facility] Rx#:[id number] Oral 0 Output: Urine 350 Other: # Bowel Movements 0 Weight Source Bedscale Laboratory Results - last 24 hr 03/06/19 03/06/19 03/06/19 16:00 17:00 17:00 WBC 5.0 RBC 3.58 L Hgb 11.5 L Hct 34.4 L MCV 96.2 MCH 32.3 H MCHC Differential 33.5 RDW 14.8 Plt Count 189 MPV 6.6 Neutrophils % 59.8 Lymphocytes % 30.3 Monocytes % 6.1 Eosinophils % 3.0 Basophils % 0.8 PT INR PTT (Actin FS) Sodium 130 L Potassium 4.1 Chloride 96 L Carbon Dioxide 26.8 Anion Gap 11.3 BUN 23 Creatinine 0.9 Est GFR ( Amer) TNP Est GFR (Non-Af Amer) TNP BUN/Creatinine Ratio 25.6 Glucose 85 POC Glucose 76 Whole Bld Lactic Acid Calcium 9.5 Total Bilirubin 0.3 AST 52 H ALT 39 Alkaline Phosphatase 63 Total Protein 6.3 Albumin 4.2 Globulin 2.1 Albumin/Globulin Ratio 2.0 H TSH Urine Source Urine Color Urine Clarity Urine pH Ur Specific [place] Urine Protein Urine Glucose (UA) Urine Ketones Urine Blood Urine Nitrate Urine Bilirubin Urine Urobilinogen Ur Leukocyte Esterase Urine RBC Urine WBC Ur Epithelial Cells Urine Bacteria 03/06/19 03/07/19 03/07/19 17:00 01:15 04:45 WBC 5.5 RBC 3.42 L Hgb 11.1 L Hct 33.3 L MCV 97.4 MCH 32.5 H MCHC Differential 33.4 RDW 14.7 Plt Count 180 MPV 7.3 Neutrophils % 63.2 Lymphocytes % 28.1 Monocytes % 5.7 Eosinophils % 2.7 Basophils % 0.3 PT INR PTT (Actin FS) Sodium Potassium Chloride Carbon Dioxide Anion Gap BUN Creatinine Est GFR ( Amer) Est GFR (Non-Af Amer) BUN/Creatinine Ratio Glucose POC Glucose Whole Bld Lactic Acid 1.40 Calcium Total Bilirubin AST ALT Alkaline Phosphatase Total Protein Albumin Globulin Albumin/Globulin Ratio TSH Urine Source [place] Urine Color PINK Urine Clarity HAZY Urine pH 5.5 Ur Specific [place] 1.025 Urine Protein 30 H Urine Glucose (UA) NEGATIVE Urine Ketones NEGATIVE Urine Blood LARGE H Urine Nitrate NEGATIVE Urine Bilirubin NEGATIVE Urine Urobilinogen 0.2 Ur Leukocyte Esterase SMALL H Urine RBC 10-25 H Urine WBC 2-5 Ur Epithelial Cells NONE SEEN Urine Bacteria NONE SEEN 03/07/19 03/07/19 03/07/19 04:45 04:45 04:45 WBC RBC Hgb Hct MCV MCH MCHC Differential RDW Plt Count MPV Neutrophils % Lymphocytes % Monocytes % Eosinophils % Basophils % PT 10.3 INR 0.99 PTT (Actin FS) 34.3 Sodium 130 L Potassium 4.4 Chloride 100 Carbon Dioxide 22.8 Anion Gap 11.6 BUN 22 Creatinine 1.0 Est GFR ( Amer) TNP Est GFR (Non-Af Amer) TNP BUN/Creatinine Ratio 22.0 Glucose 116 H POC Glucose Whole Bld Lactic Acid Calcium 8.5 L Total Bilirubin 0.3 AST 47 H ALT 33 Alkaline Phosphatase 56 Total Protein 5.6 L Albumin 3.7 L Globulin 1.9 Albumin/Globulin Ratio 2.0 H TSH 93.32 H Urine Source Urine Color Urine Clarity Urine pH Ur Specific [place] Urine Protein Urine Glucose (UA) Urine Ketones Urine Blood Urine Nitrate Urine Bilirubin Urine Urobilinogen Ur Leukocyte Esterase Urine RBC Urine WBC Ur Epithelial Cells Urine Bacteria Home Medication Medication Instructions Recorded Type Acetaminophen [Tylenol] 650 mg PO Q4H PRN tab 03/06/19 Rx Al Hyd/Mg Hyd/Simethicone [Maalox] 30 ml PO Q6H PRN udc 03/06/19 Rx Atorvastatin Calcium [Lipitor] 20 mg PO HS tab 03/06/19 Rx Lorazepam [Ativan] 0.5 mg PO Q4HR PRN tab 03/06/19 Rx Magnesium Hydroxide [Milk of 30 ml PO HS PRN udc 03/06/19 Rx Magnesia] Zolpidem Tartrate [Ambien] 5 mg PO HS PRN tab 03/06/19 Rx risperiDONE [Risperdal] 2.5 mg PO BID tab 03/06/19 Rx Current Medications Generic Name Dose Route Start Last Admin Trade Name Freq PRN Reason Stop Dose Admin Piperacillin Sod/Tazobactam 50 mls @ 100 mls/hr 03/06/19 18:00 03/07/19 13:20 Sod 2.25 gm/ Sodium Chloride IV 05/05/19 20:59 Infused Q8HR VINNY Infusion Sodium Chloride 1,000 mls @ 80 mls/hr 03/07/19 00:45 03/07/19 06:00 Nacl 0.9% IV 05/06/19 00:44 80 mls/hr .[id number] VINNY Infusion Norepinephrine Bitartrate 8 mg 258 mls @ 0 mls/hr 03/07/19 04:00 03/07/19 12: 46 / Dextrose IV 05/06/19 03:59 10 mcg/min PRN PRN 19.35 mls/hr BP MAINTENANCE (PER PROTOCOL) Administration Protocol Per Protocol Vancomycin HCl 1 gm/ Sodium 250 mls @ 165 mls/hr 03/07/19 10:00 03/07/19 10: 45 Chloride IV 05/06/19 09:59 Infused Q12H VINNY Infusion Thyroid 90 mg 03/08/19 09:00 [place] Thyroid PO 05/07/19 08:59 DAILY VINNY Tobramycin/Dexamethasone 1 drop 03/07/19 09:00 03/07/19 08:24 Tobradex 0.1%-0.3% Ophth Susp 2.5ml EACH EYE 03/11/19 08:59 1 drop BID VINNY Administration Review of Systems: A 12 point ROS was reviewed with the pertinent positive and negatives noted in the HPI. Unable to give any history. Social History Smoking Status Unknown if ever smoked Family Medical History Unknown Physical Exam: General: Patient is lying in the bed, comfortable, not in distress, sleeping. HEENT: Head: NC NT. Oral cavity: moist, pink tongue. Eyes: ptosis of right eye. Pupil PERRLA. Neck: Supple, no JVD, no use of accessory neck muscle use. Cardio: S1 and S2 WNL, no murmur. no gallop. Respiratory: CTAP. Abdominal: Soft NT ND Bs present,. Genital/Urinary: Extremities: NCCE Neurological: Sleeping. Assessment: 1. Hypotension: r/o sepsis, versus med related. 2. H/o hypertension. 3. Anxiety disorder. 4. depression. Plan: Continue IVF and levophed. Continue Zosyn and vanco. F/U sepsis w/u. Thank you Dr Gold for involving me in taking care of this patient. Signed, Pan Alarcon M.D. [id number]
--- NOTE | 2019-03-07 16:33 | History and Physical ---
History of Present Illness - HPI Chief Complaint: Hypotension and Dehydration HPI: 79yo M admitted in Geropsych unit for agitation. Patient was transferred to MS/ T and subsequently to ICU after he became hypotensive. Sepsis work up was initiated and ID consult was initiated.Patient requiring pressor in ICU. Vital Signs: Last Vital Signs Temp 97.2 F 03/07/19 12:00 Pulse 62 03/07/19 15:00 Resp 12 03/07/19 15:00 BP 111/71 03/07/19 15:00 Pulse Ox 100 03/07/19 15:00 Past Medical History Cardiovascular: Report: HTN Psych: Report: Anxiety, Depression Family Medical History - Family Member Mother History Unknown: Yes Ethnicity: Unknown Living Status: Unknown Social History Smoke: No (unknown - unable to speak with patient) Alcohol: Other (unknown - unable to speak with patient) Drugs: Other (unknown - unable to speak with patient) Lives: Other (unknown - unable to speak with patient) - Medications Home Medications: Home Medication Medication Instructions Recorded Type Acetaminophen [Tylenol] 650 mg PO Q4H PRN tab 03/06/19 Rx Al Hyd/Mg Hyd/Simethicone [Maalox] 30 ml PO Q6H PRN [facility] 03/06/19 Rx Atorvastatin Calcium [Lipitor] 20 mg PO HS tab 03/06/19 Rx Lorazepam [Ativan] 0.5 mg PO Q4HR PRN tab 03/06/19 Rx Magnesium Hydroxide [Milk of 30 ml PO HS PRN [facility] 03/06/19 Rx Magnesia] Zolpidem Tartrate [Ambien] 5 mg PO HS PRN tab 03/06/19 Rx risperiDONE [Risperdal] 2.5 mg PO BID tab 03/06/19 Rx - Allergies Allergies/Adverse Reactions: Allergies Allergy/AdvReac Type Severity Reaction Status Date / Time No Known Allergies Allergy Verified 02/16/19 14:14 Review of Systems - Review of Systems Constitutional: Report: Other (unable to obtain information from patient- sleeping and will not wake up to verbal stimulation) Eyes: Report: Other (unable to obtain information from patient- sleeping and will not wake up to verbal stimulation) ENT: Report: Other (unable to obtain information from patient- sleeping and will not wake up to verbal stimulation) Respiratory: Report: Other (unable to obtain information from patient- sleeping and will not wake up to verbal stimulation) Cardiovascular: Report: Other (unable to obtain information from patient- sleeping and will not wake up to verbal stimulation) Gastrointestinal: Report: Other Neurological: Report: Other (unable to obtain information from patient- sleeping and will not wake up to verbal stimulation) Physical Exam - Physical Exam HEENT: Report: Ears Nose Throat within normal limits Neck: Report: Within normal limits Cardiovascular Systems: Report: +s1/s2 noted, Regular, Rate and Rhythm, No JVD Present Respiratory: Report: Clear to Auscultation of lung luque Abdomen: Report: Other (Soft, ND, NT, BS present) Extremities: Report: No pedal edema was noted on inspection Neuro/Psych: Report: Other (sleeping) - Lab Results All Lab Results last 24 hours: Laboratory Results - last 24 hr 03/06/19 03/06/19 03/06/19 17:00 17:00 17:00 WBC 5.0 RBC 3.58 L Hgb 11.5 L Hct 34.4 L MCV 96.2 MCH 32.3 H MCHC Differential 33.5 RDW 14.8 Plt Count 189 MPV 6.6 Neutrophils % 59.8 Lymphocytes % 30.3 Monocytes % 6.1 Eosinophils % 3.0 Basophils % 0.8 PT INR PTT (Actin FS) Sodium 130 L Potassium 4.1 Chloride 96 L Carbon Dioxide 26.8 Anion Gap 11.3 BUN 23 Creatinine 0.9 Est GFR ( Amer) TNP Est GFR (Non-Af Amer) TNP BUN/Creatinine Ratio 25.6 Glucose 85 Whole Bld Lactic Acid 1.40 Calcium 9.5 Total Bilirubin 0.3 AST 52 H ALT 39 Alkaline Phosphatase 63 Total Protein 6.3 Albumin 4.2 Globulin 2.1 Albumin/Globulin Ratio 2.0 H TSH Urine Source Urine Color Urine Clarity Urine pH Ur Specific [place] Urine Protein Urine Glucose (UA) Urine Ketones Urine Blood Urine Nitrate Urine Bilirubin Urine Urobilinogen Ur Leukocyte Esterase Urine RBC Urine WBC Ur Epithelial Cells Urine Bacteria 03/07/19 03/07/19 03/07/19 01:15 04:45 04:45 WBC 5.5 RBC 3.42 L Hgb 11.1 L Hct 33.3 L MCV 97.4 MCH 32.5 H MCHC Differential 33.4 RDW 14.7 Plt Count 180 MPV 7.3 Neutrophils % 63.2 Lymphocytes % 28.1 Monocytes % 5.7 Eosinophils % 2.7 Basophils % 0.3 PT INR PTT (Actin FS) Sodium 130 L Potassium 4.4 Chloride 100 Carbon Dioxide 22.8 Anion Gap 11.6 BUN 22 Creatinine 1.0 Est GFR ( Amer) TNP Est GFR (Non-Af Amer) TNP BUN/Creatinine Ratio 22.0 Glucose 116 H Whole Bld Lactic Acid Calcium 8.5 L Total Bilirubin 0.3 AST 47 H ALT 33 Alkaline Phosphatase 56 Total Protein 5.6 L Albumin 3.7 L Globulin 1.9 Albumin/Globulin Ratio 2.0 H TSH Urine Source [place] Urine Color PINK Urine Clarity HAZY Urine pH 5.5 Ur Specific [place] 1.025 Urine Protein 30 H Urine Glucose (UA) NEGATIVE Urine Ketones NEGATIVE Urine Blood LARGE H Urine Nitrate NEGATIVE Urine Bilirubin NEGATIVE Urine Urobilinogen 0.2 Ur Leukocyte Esterase SMALL H Urine RBC 10-25 H Urine WBC 2-5 Ur Epithelial Cells NONE SEEN Urine Bacteria NONE SEEN 03/07/19 03/07/19 04:45 04:45 WBC RBC Hgb Hct MCV MCH MCHC Differential RDW Plt Count MPV Neutrophils % Lymphocytes % Monocytes % Eosinophils % Basophils % PT 10.3 INR 0.99 PTT (Actin FS) 34.3 Sodium Potassium Chloride Carbon Dioxide Anion Gap BUN Creatinine Est GFR ( Amer) Est GFR (Non-Af Amer) BUN/Creatinine Ratio Glucose Whole Bld Lactic Acid Calcium Total Bilirubin AST ALT Alkaline Phosphatase Total Protein Albumin Globulin Albumin/Globulin Ratio TSH 93.32 H Urine Source Urine Color Urine Clarity Urine pH Ur Specific [place] Urine Protein Urine Glucose (UA) Urine Ketones Urine Blood Urine Nitrate Urine Bilirubin Urine Urobilinogen Ur Leukocyte Esterase Urine RBC Urine WBC Ur Epithelial Cells Urine Bacteria - Assessment Assessment: #Hypotension r/o sepsis versus med related #H/O HTN #Anxiety disorder #Depression - Plan Plan: Continue current regimen (Norepi, IVF) Am labs Continue to monitor IOs Continue to monitor VS F/U ID recs and Interdisciplinary team Fall Precaution F/U Sepsis work up.
[2019-03-07] MEDS ORDERED: Magnesium Hydroxide (MOM) 30 mL UDC PO PRN (17:05)
[2019-03-07] MEDS ORDERED: Maalox 30 mL Cup PO PRN (17:05)
--- NOTE | 2019-03-07 20:11 | Progress Notes ---
DATE: 03/07/2019 SUBJECTIVE: Chart was reviewed and the patient interviewed. Also discussed the patient's condition with the staff and reviewed records and labs. The patient was transferred from Geropsych Unit to the ICU because of the patient developed hypotension. The patient currently is calm and he is not having any agitation. Seroquel was stopped at that time because of his low blood pressure and also all psychotropics are upheld. ASSESSMENT: The patient currently is calm. TREATMENT PLAN: We will continue to monitor his behavior and continue to follow up his condition closely. JOB# [id number]
[2019-03-07] MEDS: Atorvastatin Calcium 10 MG TAB PO SCH (20:37)
[2019-03-08 05:37] LABS: % BASOPHILS 1.1 % (0.0-2.0); % EOSINOPHILS 4.4 % (0.0-5.0); % LYMPHOCYTES 32.4 % (20.0-50.0); % MONOCYTES 4.9 % (2.0-10.0); % NEUTROPHILS 57.2 % (40.0-80.0); ANION GAP 11.5 (7.0-16.0); BASOPHILE ABSOLUTE 0.1 Th/cumm (0-0.2); BUN - UREA NITROGEN 17 mg/dL (7-25); CALCIUM SERUM 8.2 mg/dL (8.6-10.3); CHLORIDE 104 mEq/L (98-107); EOSINOPHILE ABSOLUTE 0.2 Th/cmm (0.1-0.4); GLUCOSE 70 mg/dL (70-105); HEMATOCRIT 30.6 % (41.0-60); HEMOGLOBIN 10.2 gm/dL (12-16); LYMPHOCYTE ABSOLUTE 1.5 Th/cmm (1.5-3.0); MEAN CELL VOLUME 95.9 fl (80-99); MEAN CORPUSCULAR HEMOGLOBIN 31.8 pg (27.0-31.0); MEAN CORPUSCULAR HGB CONC 33.1 pg (28.0-36.0); MONOCYTE ABSOLUTE 0.2 Th/cmm (0.3-1.0); NEUTROPHILE ABSOLUTE 2.6 Th/cmm (1.8-8.0); PLATELET COUNT 149 Th/cmm (150-400); POTASSIUM SERUM 4.5 mEq/L (3.5-5.1); RED CELL DISTRIBUTION WIDTH 14.7 % (11.5-20.0); SODIUM SERUM 134 mEq/L (136-145); WHITE BLOOD COUNT 4.6 Th/cmm (4.8-10.8)
[2019-03-08] MEDS: Dexamethasone/Tobramycin Ophth Susp 2.5 mL Bottle EACH EYE SCH ×3 (09:37→16:57)
--- NOTE | 2019-03-08 09:41 | Internal Medicine Prog Note ---
Internal Medicine Subjective - Subjective Service Date: 03/08/19 Patient seen and examined:: with staff Patient is:: awake, in bed Patient Complaints of:: other (Patient was admitted due to Dehydrated/ Hypotension) Per staff patient has:: no adverse event, no episodes of fall Internal Medicine Objective - Results Result Diagrams: 03/08/19 04:10 03/08/19 04:10 Recent Labs: Laboratory Last Values WBC 4.6 Th/cmm (4.8-10.8) L 03/08/19 04:10 RBC 3.20 Mil/cmm (3.80-5.80) L 03/08/19 04:10 Hgb 10.2 gm/dL (12-16) L 03/08/19 04:10 Hct 30.6 % (41.0-60) L 03/08/19 04:10 MCV 95.9 fl (80-99) 03/08/19 04:10 MCH 31.8 pg (27.0-31.0) H 03/08/19 04:10 MCHC Differential 33.1 pg (28.0-36.0) 03/08/19 04:10 RDW 14.7 % (11.5-20.0) 03/08/19 04:10 Plt Count 149 Th/cmm (150-400) L 03/08/19 04:10 MPV 7.7 fl 03/08/19 04:10 Neutrophils % 57.2 % (40.0-80.0) 03/08/19 04:10 Lymphocytes % 32.4 % (20.0-50.0) 03/08/19 04:10 Monocytes % 4.9 % (2.0-10.0) 03/08/19 04:10 Eosinophils % 4.4 % (0.0-5.0) 03/08/19 04:10 Basophils % 1.1 % (0.0-2.0) 03/08/19 04:10 PT 10.3 SECONDS (9.5-11.5) 03/07/19 04:45 INR 0.99 (0.5-1.4) 03/07/19 04:45 PTT (Actin FS) 34.3 SECONDS (26.0-38.0) 03/07/19 04:45 Sodium 134 mEq/L (136-145) L 03/08/19 04:10 Potassium 4.5 mEq/L (3.5-5.1) 03/08/19 04:10 Chloride 104 mEq/L (98-107) 03/08/19 04:10 Carbon Dioxide 23.0 mEq/L (21.0-31.0) 03/08/19 04:10 Anion Gap 11.5 (7.0-16.0) 03/08/19 04:10 BUN 17 mg/dL (7-25) 03/08/19 04:10 Creatinine 1.0 mg/dL (0.7-1.3) 03/08/19 04:10 Est GFR ( Amer) TNP 03/08/19 04:10 Est GFR (Non-Af Amer) TNP 03/08/19 04:10 BUN/Creatinine Ratio 17.0 03/08/19 04:10 Glucose 70 mg/dL (70-105) 03/08/19 04:10 POC Glucose 76 MG/DL (70 - 105) 03/06/19 16:00 Whole Bld Lactic Acid 1.40 mmol/L (0.60-1.99) 03/06/19 17:00 Calcium 8.2 mg/dL (8.6-10.3) L 03/08/19 04:10 Total Bilirubin 0.3 mg/dL (0.3-1.0) 03/07/19 04:45 AST 47 U/L (13-39) H 03/07/19 04:45 ALT 33 U/L (7-52) 03/07/19 04:45 Alkaline Phosphatase 56 U/L (34-104) 03/07/19 04:45 Total Protein 5.6 gm/dL (6.0-8.3) L 03/07/19 04:45 Albumin 3.7 gm/dL (4.2-5.5) L 03/07/19 04:45 Globulin 1.9 gm/dL 03/07/19 04:45 Albumin/Globulin Ratio 2.0 (1.0-1.8) H 03/07/19 04:45 TSH 93.32 uIU/ml (0.34-5.60) H 03/07/19 04:45 Urine Source [place] 03/07/19 01:15 Urine Color PINK 03/07/19 01:15 Urine Clarity HAZY (CLEAR) 03/07/19 01:15 Urine pH 5.5 (4.6 - 8.0) 03/07/19 01:15 Ur Specific [place] 1.025 (1.005-1.030) 03/07/19 01:15 Urine Protein 30 mg/dL (NEGATIVE) H 03/07/19 01:15 Urine Glucose (UA) NEGATIVE mg/dL (NEGATIVE) 03/07/19 01:15 Urine Ketones NEGATIVE mg/dL (NEGATIVE) 03/07/19 01:15 Urine Blood LARGE (NEGATIVE) H 03/07/19 01:15 Urine Nitrate NEGATIVE (NEGATIVE) 03/07/19 01:15 Urine Bilirubin NEGATIVE (NEGATIVE) 03/07/19 01:15 Urine Urobilinogen 0.2 E.U./dL (0.2 - 1.0) 03/07/19 01:15 Ur Leukocyte Esterase SMALL (NEGATIVE) H 03/07/19 01:15 Urine RBC 10-25 /hpf (0-5) H 03/07/19 01:15 Urine WBC 2-5 /hpf (0-5) 03/07/19 01:15 Ur Epithelial Cells NONE SEEN /lpf (FEW) 03/07/19 01:15 Urine Bacteria NONE SEEN /hpf (NONE SEEN) 03/07/19 01:15 - Physical Exam Vitals and I&O: Vital Signs Temp 98.3 F 03/08/19 09:20 Pulse 69 03/08/19 09:20 Resp 16 03/08/19 09:20 BP 96/54 03/08/19 09:20 Pulse Ox 97 03/08/19 09:20 Intake & Output 03/07/19 03/08/19 03/08/19 18:59 06:59 18:59 Intake Total 1447.410 67.415 Output Total 1450 850 Balance -2.590 -782.585 Weight (lbs) 87.09 kg 87.997 kg Intake: Intake, IV Amount 1197.410 67.415 Norepinephrine 8 mg In 249.410 17.415 Dextrose 5% 250 ml @ Per Protocol IV PRN PRN Rx#: [id number] Piperacillin Sodium/ 50 50 Tazobact 2.25 gm In Sodium Chloride 0.9% 50 ml @ 100 mls/hr IV Q8HR [facility] Rx#:[id number] Sodium Chloride 0.9% 1, 648 000 ml @ 80 mls/hr IV . [id number] [facility] Rx#:[id number] Vancomycin HCl 1 gm In 250 Sodium Chloride 0.9% 250 ml @ 165 mls/hr IV Q12H [facility] Rx#:[id number] Oral 250 0 Output: Urine 1450 850 Other: Weight Source Bedscale Bedscale Active Medications: Current Medications Acetaminophen (Tylenol) 650 mg PO Q4H PRN PRN Reason: Mild Pain/Headache/T above 101 Stop: 05/06/19 17:04 Al Hydrox/Mg Hydrox/Simethicone (Maalox) 30 ml PO Q6H PRN PRN Reason: Dyspepsia Stop: 05/06/19 17:04 Atorvastatin Calcium (Lipitor) 20 mg PO HS [facility]INNY; Protocol Stop: 05/06/19 20:59 Last Admin: 03/07/19 20:37 Dose: 20 mg Piperacillin Sod/Tazobactam (Sod 2.25 gm/ Sodium Chloride) 50 mls @ 100 mls/hr IV Q8HR [facility] Stop: 05/05/19 20:59 Last Admin: 03/08/19 04:41 Dose: 100 mls/hr Sodium Chloride (Nacl 0.9%) 1,000 mls @ 80 mls/hr IV .[id number] [facility] Stop: 05/06/19 00:44 Last Admin: 03/07/19 15:40 Dose: 80 mls/hr Norepinephrine Bitartrate 8 mg (/ Dextrose) 258 mls @ 0 mls/hr IV PRN PRN; Protocol PRN Reason: BP MAINTENANCE (PER PROTOCOL) Stop: 05/06/19 03:59 Last Titration: 03/07/19 19:00 Dose: 0 mcg/min, 0 mls/hr Vancomycin HCl 1 gm/ Sodium (Chloride) 250 mls @ 165 mls/hr IV Q12H [facility] Stop: 05/06/19 09:59 Last Admin: 03/07/19 22:00 Dose: 165 mls/hr Magnesium Hydroxide (Milk Of Magnesia) 30 ml PO HS PRN PRN Reason: Constipation Stop: 05/06/19 17:04 Thyroid ([place] Thyroid) 90 mg PO DAILY [facility] Stop: 05/07/19 08:59 Tobramycin/Dexamethasone (Tobradex 0.1%-0.3% Ophth Susp 2.5ml) 1 drop EACH EYE BID [facility] Stop: 03/11/19 08:59 Last Admin: 03/07/19 18:23 Dose: 1 drop Physical Exam: 79 y/o male patient was admitted to ICU due to Hypotension and Dehydration. General: weak HEENT: NC/AT Neck: Supple, No JVD Lungs: CTAB Cardiovascular: RRR, Normal S1 Abdomen: soft, non-tender Extremities: clear Neurological: no change Internal Medicine Assmt/Plan - Assessment Assessment: Hypotension. Dehydration. History of HTN. Anxiety. Depression. - Plan Plan: Continuation of care. Keep hydrated. Monitor Vitals and Labs. Psych management per Psych. Continue Antibiotics and present meds as directed. Fall precaution. Continue present care management. Nutritional Asmnt/Malnutr-PDOC - Dietary Evaluation Malnutrition Findings (Please click <Entered> for more info): see orders.
--- NOTE | 2019-03-08 16:24 | General Progress Note ---
Subjective - Review of Systems Service Date: 03/08/19 Subjective: Patient sleeping in Trendelenburg position Objective - Results Result Diagrams: 03/08/19 04:10 03/08/19 04:10 Recent Labs: Laboratory Last Values WBC 4.6 Th/cmm (4.8-10.8) L 03/08/19 04:10 RBC 3.20 Mil/cmm (3.80-5.80) L 03/08/19 04:10 Hgb 10.2 gm/dL (12-16) L 03/08/19 04:10 Hct 30.6 % (41.0-60) L 03/08/19 04:10 MCV 95.9 fl (80-99) 03/08/19 04:10 MCH 31.8 pg (27.0-31.0) H 03/08/19 04:10 MCHC Differential 33.1 pg (28.0-36.0) 03/08/19 04:10 RDW 14.7 % (11.5-20.0) 03/08/19 04:10 Plt Count 149 Th/cmm (150-400) L 03/08/19 04:10 MPV 7.7 fl 03/08/19 04:10 Neutrophils % 57.2 % (40.0-80.0) 03/08/19 04:10 Lymphocytes % 32.4 % (20.0-50.0) 03/08/19 04:10 Monocytes % 4.9 % (2.0-10.0) 03/08/19 04:10 Eosinophils % 4.4 % (0.0-5.0) 03/08/19 04:10 Basophils % 1.1 % (0.0-2.0) 03/08/19 04:10 PT 10.3 SECONDS (9.5-11.5) 03/07/19 04:45 INR 0.99 (0.5-1.4) 03/07/19 04:45 PTT (Actin FS) 34.3 SECONDS (26.0-38.0) 03/07/19 04:45 Sodium 134 mEq/L (136-145) L 03/08/19 04:10 Potassium 4.5 mEq/L (3.5-5.1) 03/08/19 04:10 Chloride 104 mEq/L (98-107) 03/08/19 04:10 Carbon Dioxide 23.0 mEq/L (21.0-31.0) 03/08/19 04:10 Anion Gap 11.5 (7.0-16.0) 03/08/19 04:10 BUN 17 mg/dL (7-25) 03/08/19 04:10 Creatinine 1.0 mg/dL (0.7-1.3) 03/08/19 04:10 Est GFR ( Amer) TNP 03/08/19 04:10 Est GFR (Non-Af Amer) TNP 03/08/19 04:10 BUN/Creatinine Ratio 17.0 03/08/19 04:10 Glucose 70 mg/dL (70-105) 03/08/19 04:10 POC Glucose 76 MG/DL (70 - 105) 03/06/19 16:00 Whole Bld Lactic Acid 1.40 mmol/L (0.60-1.99) 03/06/19 17:00 Calcium 8.2 mg/dL (8.6-10.3) L 03/08/19 04:10 Total Bilirubin 0.3 mg/dL (0.3-1.0) 03/07/19 04:45 AST 47 U/L (13-39) H 03/07/19 04:45 ALT 33 U/L (7-52) 03/07/19 04:45 Alkaline Phosphatase 56 U/L (34-104) 03/07/19 04:45 Total Protein 5.6 gm/dL (6.0-8.3) L 03/07/19 04:45 Albumin 3.7 gm/dL (4.2-5.5) L 03/07/19 04:45 Globulin 1.9 gm/dL 03/07/19 04:45 Albumin/Globulin Ratio 2.0 (1.0-1.8) H 03/07/19 04:45 TSH 93.32 uIU/ml (0.34-5.60) H 03/07/19 04:45 Urine Source [place] 03/07/19 01:15 Urine Color PINK 03/07/19 01:15 Urine Clarity HAZY (CLEAR) 03/07/19 01:15 Urine pH 5.5 (4.6 - 8.0) 03/07/19 01:15 Ur Specific [place] 1.025 (1.005-1.030) 03/07/19 01:15 Urine Protein 30 mg/dL (NEGATIVE) H 03/07/19 01:15 Urine Glucose (UA) NEGATIVE mg/dL (NEGATIVE) 03/07/19 01:15 Urine Ketones NEGATIVE mg/dL (NEGATIVE) 03/07/19 01:15 Urine Blood LARGE (NEGATIVE) H 03/07/19 01:15 Urine Nitrate NEGATIVE (NEGATIVE) 03/07/19 01:15 Urine Bilirubin NEGATIVE (NEGATIVE) 03/07/19 01:15 Urine Urobilinogen 0.2 E.U./dL (0.2 - 1.0) 03/07/19 01:15 Ur Leukocyte Esterase SMALL (NEGATIVE) H 03/07/19 01:15 Urine RBC 10-25 /hpf (0-5) H 03/07/19 01:15 Urine WBC 2-5 /hpf (0-5) 03/07/19 01:15 Ur Epithelial Cells NONE SEEN /lpf (FEW) 03/07/19 01:15 Urine Bacteria NONE SEEN /hpf (NONE SEEN) 03/07/19 01:15 Vancomycin Trough 14.9 ug/mL (5-10) H 03/08/19 09:30 - Physical Exam Vitals and I&O: Vital Signs Temp 98.8 F 03/08/19 16:03 Pulse 70 03/08/19 16:03 Resp 16 03/08/19 16:03 BP 105/64 03/08/19 16:03 Pulse Ox 97 03/08/19 16:03 Intake & Output 03/07/19 03/08/19 03/08/19 18:59 06:59 18:59 Intake Total 1447.410 367.415 50 Output Total 1450 850 Balance -2.590 -482.585 50 Weight (lbs) 87.09 kg 87.997 kg Intake: Intake, IV Amount 1197.410 367.415 50 Norepinephrine 8 mg In 249.410 17.415 Dextrose 5% 250 ml @ Per Protocol IV PRN PRN Rx#: [id number] Piperacillin Sodium/ 50 100 50 Tazobact 2.25 gm In Sodium Chloride 0.9% 50 ml @ 100 mls/hr IV Q8HR [facility] Rx#:[id number] Sodium Chloride 0.9% 1, 648 000 ml @ 80 mls/hr IV . [id number] [facility] Rx#:[id number] Vancomycin HCl 1 gm In 250 250 Sodium Chloride 0.9% 250 ml @ 165 mls/hr IV Q12H [facility] Rx#:[id number] Oral 250 0 Output: Urine 1450 850 Other: Weight Source Bedscale Bedscale Active Medications: Current Medications Acetaminophen (Tylenol) 650 mg PO Q4H PRN PRN Reason: Mild Pain/Headache/T above 101 Stop: 05/06/19 17:04 Al Hydrox/Mg Hydrox/Simethicone (Maalox) 30 ml PO Q6H PRN PRN Reason: Dyspepsia Stop: 05/06/19 17:04 Atorvastatin Calcium (Lipitor) 20 mg PO HS [facility]; Protocol Stop: 05/06/19 20:59 Last Admin: 03/07/19 20:37 Dose: 20 mg Piperacillin Sod/Tazobactam (Sod 2.25 gm/ Sodium Chloride) 50 mls @ 100 mls/hr IV Q8HR [facility] Stop: 05/05/19 20:59 Last Infusion: 03/08/19 12:45 Dose: Infused Sodium Chloride (Nacl 0.9%) 1,000 mls @ 80 mls/hr IV .[id number] [facility] Stop: 05/06/19 00:44 Last Admin: 03/07/19 15:40 Dose: 80 mls/hr Norepinephrine Bitartrate 8 mg (/ Dextrose) 258 mls @ 0 mls/hr IV PRN PRN; Protocol PRN Reason: BP MAINTENANCE (PER PROTOCOL) Stop: 05/06/19 03:59 Last Titration: 03/07/19 19:00 Dose: 0 mcg/min, 0 mls/hr Vancomycin HCl 1 gm/ Sodium (Chloride) 250 mls @ 165 mls/hr IV Q12H [facility] Stop: 05/06/19 09:59 Last Admin: 03/08/19 10:15 Dose: 165 mls/hr Magnesium Hydroxide (Milk Of Magnesia) 30 ml PO HS PRN PRN Reason: Constipation Stop: 05/06/19 17:04 Thyroid ([place] Thyroid) 90 mg PO DAILY [facility] Stop: 05/07/19 08:59 Last Admin: 03/08/19 12:14 Dose: 90 mg Tobramycin/Dexamethasone (Tobradex 0.1%-0.3% Ophth Susp 2.5ml) 1 drop EACH EYE BID [facility] Stop: 03/11/19 08:59 Last Admin: 03/08/19 10:24 Dose: 1 drop General: No acute distress HEENT: Mucous membr. moist/pink Neck: Supple, JVD, +2 carotid pulse wo bruit Cardiovascular: Regular rate (flat), Normal S1, Normal S2, Systolic murmurs Lungs: Clear to auscultation, Normal air movement Abdomen: Bowel sounds, Soft, Other Extremities: Edema (no organomegaly no pedal edema) Neurological: Reflexes 2+ Assessment/Plan - Assessment Assessment: Hypotension off Levophed Sepsis Major depression Anxiety Hypothyroid bradycardia - Plan Plan: Patient off Levophed patient on Trandate on position change IV to D5 normal saline as patient is not taking orally anything Nutritional Asmnt/Malnutr-PDOC - Dietary Evaluation Malnutrition Findings (Please click <Entered> for more info): Nutritional Asmnt/Malnutrition Start: 03/08/19 11: 30 Text: Status: Complete Freq: Protocol: Document 03/08/19 11:30 MMULHERN (Rec: 03/08/19 11:54 [email or web address] [id number]) Nutritional Asmnt/Malnutrition Patient General Information Nutritional Screening High Risk Consult Diagnosis Dehydration, low BP Pertinent Medical Hx/Surgical Hx HTN, Anxiety, depression Subjective Information Consult received for Cornelius Espinoza . Per nursing notes on 03/06, patient with poor appetite, ate ~10% of dinner. Patient asleep at time of visit. Per RN, patient did not wake up for his lunch. Current Diet Order/ Nutrition Support Mechanical soft chopped Patient / S.O Not Indicated Pertinent Medications Maalox, Lipitor, MOM, abx Pertinent Labs (03/08) Na 134, Ca 8.2, Albumin 3.7 Nutritional Hx/Data Height 1.8 m Height (Calculated Centimeters) 180.3 Current Weight (lbs) 87.997 kg Weight (Calculated Kilograms) 88.0 Weight (Calculated Grams) 49646.9 [place] Body Weight 172 % [place] Body Weight 112 Body Mass Index (BMI) 27.0 Recent Weight Change No Weight Status Overweight GI Symptoms GI Symptoms None Last BM none noted since admission Difficult in: None Food Allergies No Cultural/Ethnic/Jewish Belief none indicated Usual diet at home unknown Skin Integrity/Comment: Cornelius 14, reddened/potential right/left hand, right/left arm Current %PO Negligible < 25% Estimated Nutritional Goals BEE in Kcals: Using Current wt Calories/Kcals/Kg 88.1kg CBW Kcals Calculated ~1135-4530 kcal/day (22-27 kcal/kg) Protein: Using Current wt Protein g/k-1.2 gm/kg Protein Calculated ~90-105 gm/day Fluid: ml ~6565-5108 ml/day (1ml/kcal) Nutritional Problem 1. Problem Problem Inadequate oral intake related to Etiology poor appetite aeb Signs/Symptoms: PO intake <25% of meals Intervention/Recommendation Comments 1. Continue mechannical soft, chopped diet as tolerated by patient. 2. Add Ensure Enlive TID with meals to supplement oral intake. 3. Provide assistance with meals and encourage oral intake. Expected Outcomes/Goals Expected Outcomes/Goals PO intake to meet >75% of nutritional needs, weight stability or trend toward ideal body weight, skin intact , nutrition related labs to approach WNL. F/U HR 03/10-
[2019-03-08] MEDS: D5-0.9%NS 1,000 ML IV SCH (16:55)
--- NOTE | 2019-03-08 19:56 | Consultation ---
DATE OF CONSULTATION: 03/07/[address] Gold. HISTORY OF PRESENT ILLNESS: This is an 79-year-old male patient recently admitted to [facility] due to hypotension. The patient was transferred to ICU. The patient is on IV Levophed. Cardiac consult is requested. PAST MEDICAL HISTORY: Major depression, anxiety, hypothyroid, and bradycardia. FAMILY HISTORY: Unremarkable. SOCIAL HISTORY: No history of smoking or alcohol abuse. ALLERGIES: None. PHYSICAL EXAMINATION: VITAL SIGNS: Blood pressure 80 systolic, on Levophed; pulse 68; and respirations 28. HEAD: Normocephalic. No lumps or bumps. EYES: Pupils equal, reactive to light. Fundi show AV nicking, sclerae white, conjunctivae pink. NECK: Carotid 2+. Normal upstroke. JVD flat. Thyroid not palpable. Lymph nodes not palpable. CHEST: Shows increased AP diameter. No kyphosis, scoliosis. LUNGS: Bilateral bronchovesicular breath sounds. HEART: PMI fifth intercostal space with lateral to midclavicular line. S1, S2. No S3, S4, soft systolic murmur. ABDOMEN: Soft. Liver, spleen not palpable. No organomegaly. Bowel sounds active. NEUROLOGIC: No focal neurological deficit. EXTREMITIES: Peripheral pulses 2+. No pedal edema. CLINICAL IMPRESSION: Hypotension, rule out septic shock. The patient started on Levophed. Sepsis workup started. Major depression, anxiety, hypothyroid, bradycardia. PLAN: The patient will be started on Synthroid, Levophed, and monitor the patient in Intensive Care Unit. [facility]# [id number]
[2019-03-08] MEDS: Atorvastatin Calcium 10 MG TAB PO SCH (20:38)
[2019-03-09 04:45] LABS: % BASOPHILS 0.3 % (0.0-2.0); % LYMPHOCYTES 21.5 % (20.0-50.0); % MONOCYTES 5.4 % (2.0-10.0); % NEUTROPHILS 69.8 % (40.0-80.0); EOSINOPHILE ABSOLUTE 0.2 Th/cmm (0.1-0.4); HEMATOCRIT 31.8 % (41.0-60); HEMOGLOBIN 10.3 gm/dL (12-16); LYMPHOCYTE ABSOLUTE 1.4 Th/cmm (1.5-3.0); MEAN CELL VOLUME 98.4 fl (80-99); MEAN CORPUSCULAR HEMOGLOBIN 31.9 pg (27.0-31.0); MEAN CORPUSCULAR HGB CONC 32.4 pg (28.0-36.0); MONOCYTE ABSOLUTE 0.3 Th/cmm (0.3-1.0); NEUTROPHILE ABSOLUTE 4.4 Th/cmm (1.8-8.0); PLATELET COUNT 160 Th/cmm (150-400); RED BLOOD COUNT 3.23 Mil/cmm (3.80-5.80); RED CELL DISTRIBUTION WIDTH 14.4 % (11.5-20.0); WHITE BLOOD COUNT 6.3 Th/cmm (4.8-10.8)
[2019-03-09 06:02] LABS: ALB/GLOB RATIO 1.7 (1.0-1.8); ALBUMIN 3.4 gm/dL (4.2-5.5); ALKALINE PHOSPHATASE 50 U/L (34-104); ANION GAP 12.4 (7.0-16.0); BILIRUBIN,TOTAL 0.5 mg/dL (0.3-1.0); BUN - UREA NITROGEN 16 mg/dL (7-25); CALCIUM SERUM 8.3 mg/dL (8.6-10.3); CHLORIDE 106 mEq/L (98-107); CREATININE - SERUM 1.3 mg/dL (0.7-1.3); GLUCOSE 103 mg/dL (70-105); POTASSIUM SERUM 4.4 mEq/L (3.5-5.1); SGOT 45 U/L (13-39); SGPT/ALT 27 U/L (7-52); SODIUM SERUM 136 mEq/L (136-145); TOTAL PROTEIN,SERUM 5.4 gm/dL (6.0-8.3)
[2019-03-09] MEDS: D5-0.9%NS 1,000 ML IV SCH (06:10)
--- NOTE | 2019-03-09 08:30 | Infectious Disease Prog Note ---
Infectious Disease Subjective - Review of Systems Service Date: 03/09/19 (.) Subjective: Remains hypotensive, no fever. on levophed. Infectious Disease Objective - Results Result Diagrams: 03/09/19 04:15 03/09/19 04:15 Recent Labs: Laboratory Last Values WBC 6.3 Th/cmm (4.8-10.8) 03/09/19 04:15 RBC 3.23 Mil/cmm (3.80-5.80) L 03/09/19 04:15 Hgb 10.3 gm/dL (12-16) L 03/09/19 04:15 Hct 31.8 % (41.0-60) L 03/09/19 04:15 MCV 98.4 fl (80-99) 03/09/19 04:15 MCH 31.9 pg (27.0-31.0) H 03/09/19 04:15 MCHC Differential 32.4 pg (28.0-36.0) 03/09/19 04:15 RDW 14.4 % (11.5-20.0) 03/09/19 04:15 Plt Count 160 Th/cmm (150-400) 03/09/19 04:15 MPV 7.4 fl 03/09/19 04:15 Neutrophils % 69.8 % (40.0-80.0) 03/09/19 04:15 Lymphocytes % 21.5 % (20.0-50.0) 03/09/19 04:15 Monocytes % 5.4 % (2.0-10.0) 03/09/19 04:15 Eosinophils % 3.0 % (0.0-5.0) 03/09/19 04:15 Basophils % 0.3 % (0.0-2.0) 03/09/19 04:15 PT 10.3 SECONDS (9.5-11.5) 03/07/19 04:45 INR 0.99 (0.5-1.4) 03/07/19 04:45 PTT (Actin FS) 34.3 SECONDS (26.0-38.0) 03/07/19 04:45 Sodium 136 mEq/L (136-145) 03/09/19 04:15 Potassium 4.4 mEq/L (3.5-5.1) 03/09/19 04:15 Chloride 106 mEq/L (98-107) 03/09/19 04:15 Carbon Dioxide 22.0 mEq/L (21.0-31.0) 03/09/19 04:15 Anion Gap 12.4 (7.0-16.0) 03/09/19 04:15 BUN 16 mg/dL (7-25) 03/09/19 04:15 Creatinine 1.3 mg/dL (0.7-1.3) 03/09/19 04:15 Est GFR ( Amer) TNP 03/09/19 04:15 Est GFR (Non-Af Amer) TNP 03/09/19 04:15 BUN/Creatinine Ratio 12.3 03/09/19 04:15 Glucose 103 mg/dL (70-105) 03/09/19 04:15 POC Glucose 76 MG/DL (70 - 105) 03/06/19 16:00 Whole Bld Lactic Acid 1.40 mmol/L (0.60-1.99) 03/06/19 17:00 Calcium 8.3 mg/dL (8.6-10.3) L 03/09/19 04:15 Total Bilirubin 0.5 mg/dL (0.3-1.0) 03/09/19 04:15 AST 45 U/L (13-39) H 03/09/19 04:15 ALT 27 U/L (7-52) 03/09/19 04:15 Alkaline Phosphatase 50 U/L (34-104) 03/09/19 04:15 Total Protein 5.4 gm/dL (6.0-8.3) L 03/09/19 04:15 Albumin 3.4 gm/dL (4.2-5.5) L 03/09/19 04:15 Globulin 2.0 gm/dL 03/09/19 04:15 Albumin/Globulin Ratio 1.7 (1.0-1.8) 03/09/19 04:15 TSH 93.32 uIU/ml (0.34-5.60) H 03/07/19 04:45 Urine Source [place]AM[place]IN [place] 03/07/19 01:15 Urine Color PINK 03/07/19 01:15 Urine Clarity HAZY (CLEAR) 03/07/19 01:15 Urine pH 5.5 (4.6 - 8.0) 03/07/19 01:15 Ur Specific [place] 1.025 (1.005-1.030) 03/07/19 01:15 Urine Protein 30 mg/dL (NEGATIVE) H 03/07/19 01:15 Urine Glucose (UA) NEGATIVE mg/dL (NEGATIVE) 03/07/19 01:15 Urine Ketones NEGATIVE mg/dL (NEGATIVE) 03/07/19 01:15 Urine Blood LARGE (NEGATIVE) H 03/07/19 01:15 Urine Nitrate NEGATIVE (NEGATIVE) 03/07/19 01:15 Urine Bilirubin NEGATIVE (NEGATIVE) 03/07/19 01:15 Urine Urobilinogen 0.2 E.U./dL (0.2 - 1.0) 03/07/19 01:15 Ur Leukocyte Esterase SMALL (NEGATIVE) H 03/07/19 01:15 Urine RBC 10-25 /hpf (0-5) H 03/07/19 01:15 Urine WBC 2-5 /hpf (0-5) 03/07/19 01:15 Ur Epithelial Cells NONE SEEN /lpf (FEW) 03/07/19 01:15 Urine Bacteria NONE SEEN /hpf (NONE SEEN) 03/07/19 01:15 Vancomycin Trough 14.9 ug/mL (5-10) H 03/08/19 09:30 - Physical Exam Vitals and I&O: Vital Signs Temp 97.8 F 03/09/19 06:00 Pulse 78 03/09/19 07:49 Resp 20 03/09/19 07:49 BP 110/59 03/09/19 06:00 Pulse Ox 98 03/09/19 07:49 Intake & Output 03/08/19 03/09/19 03/09/19 18:59 06:59 18:59 Intake Total 310 1360 Output Total 400 400 Balance -90 960 Weight (lbs) 87.997 kg 87.997 kg Intake: Intake, IV Amount 300 1350 D5-0.9%Ns 1,000 ml @ 80 1000 mls/hr IV .[id number] [facility] Rx #:[id number] Piperacillin Sodium/ 50 100 Tazobact 2.25 gm In Sodium Chloride 0.9% 50 ml @ 100 mls/hr IV Q8HR [facility] Rx#:[id number] Vancomycin HCl 1 gm In 250 250 Sodium Chloride 0.9% 250 ml @ 165 mls/hr IV Q12H [facility] Rx#:[id number] Oral 10 10 Output: Urine 400 400 Other: # Bowel Movements 0 1 Stool Characteristics Soft Brown Weight Source Bedscale Bedscale Active Medications: Current Medications Acetaminophen (Tylenol) 650 mg PO Q4H PRN PRN Reason: Mild Pain/Headache/T above 101 Stop: 05/06/19 17:04 Al Hydrox/Mg Hydrox/Simethicone (Maalox) 30 ml PO Q6H PRN PRN Reason: Dyspepsia Stop: 05/06/19 17:04 Atorvastatin Calcium (Lipitor) 20 mg PO HS [facility]; Protocol Stop: 05/06/19 20:59 Last Admin: 03/08/19 20:38 Dose: Not Given Piperacillin Sod/Tazobactam (Sod 2.25 gm/ Sodium Chloride) 50 mls @ 100 mls/hr IV Q8HR [facility] Stop: 05/05/19 20:59 Last Infusion: 03/09/19 05:42 Dose: Infused Norepinephrine Bitartrate 8 mg (/ Dextrose) 258 mls @ 0 mls/hr IV PRN PRN; Protocol PRN Reason: BP MAINTENANCE (PER PROTOCOL) Stop: 05/06/19 03:59 Last Titration: 03/07/19 19:00 Dose: 0 mcg/min, 0 mls/hr Vancomycin HCl 1 gm/ Sodium (Chloride) 250 mls @ 165 mls/hr IV Q12H [facility] Stop: 05/06/19 09:59 Last Infusion: 03/08/19 23:20 Dose: Infused Dextrose/Sodium Chloride (D5-0.9%Ns) 1,000 mls @ 80 mls/hr IV .[id number] [facility] Stop: 05/07/19 16:59 Last Admin: 03/09/19 06:10 Dose: 80 mls/hr Magnesium Hydroxide (Milk Of Magnesia) 30 ml PO HS PRN PRN Reason: Constipation Stop: 05/06/19 17:04 Thyroid ([place] Thyroid) 90 mg PO DAILY [facility] Stop: 05/07/19 08:59 Last Admin: 03/08/19 12:14 Dose: 90 mg Tobramycin/Dexamethasone (Tobradex 0.1%-0.3% Ophth Susp 2.5ml) 1 drop EACH EYE BID [facility] Stop: 03/11/19 08:59 Last Admin: 03/08/19 16:57 Dose: 1 drop General: no acute distress, well developed, well nourished HEENT: atraumatic, normocephalic, PERRLA Neck: supple, no thyromegaly Cardiovascular: S1S2, regular Lungs: clear to auscultation bilaterally, clear to percussion Abdomen: soft, bowel sounds, no tender, no distended Extremities: no cyanosis, no clubbing, no edema Neurological: other (sleeping) Skin: intact Infectious Disease Assmt/Plan - Assessment Assessment: 1. Hypotension: r/o sepsis, versus med related. 2. H/o hypertension. 3. Anxiety disorder. 4. depression. - Plan Plan: Dc vanco and continue Zosyn. Nutritional Asmnt/Malnutr-PDOC - Dietary Evaluation Malnutrition Findings (Please click <Entered> for more info): Nutritional Asmnt/Malnutrition Start: 03/08/19 11: 30 Text: Status: Complete Freq: Protocol: Document 03/08/19 11:30 MMULRISHI (Rec: 03/08/19 11:54 MMULHERN YUKI- FNS1) Nutritional Asmnt/Malnutrition Patient General Information Nutritional Screening High Risk Consult Diagnosis Dehydration, low BP Pertinent Medical Hx/Surgical Hx HTN, Anxiety, depression Subjective Information Consult received for Cornelius 11 . Per nursing notes on 03/06, patient with poor appetite, ate ~10% of dinner. Patient asleep at time of visit. Per RN, patient did not wake up for his lunch. Current Diet Order/ Nutrition Support Mechanical soft chopped Patient / S.O Not Indicated Pertinent Medications Maalox, Lipitor, MOM, abx Pertinent Labs (03/08) Na 134, Ca 8.2, Albumin 3.7 Nutritional Hx/Data Height 1.8 m Height (Calculated Centimeters) 180.3 Current Weight (lbs) 87.997 kg Weight (Calculated Kilograms) 88.0 Weight (Calculated Grams) 29254.9 [place] Body Weight 172 % [place] Body Weight 112 Body Mass Index (BMI) 27.0 Recent Weight Change No Weight Status Overweight GI Symptoms GI Symptoms None Last BM none noted since admission Difficult in: None Food Allergies No Cultural/Ethnic/Baptism Belief none indicated Usual diet at home unknown Skin Integrity/Comment: Cornelius 14, reddened/potential right/left hand, right/left arm Current %PO Negligible < 25% Estimated Nutritional Goals BEE in Kcals: Using Current wt Calories/Kcals/Kg 88.1kg CBW Kcals Calculated ~2821-9354 kcal/day (22-27 kcal/kg) Protein: Using Current wt Protein g/k-1.2 gm/kg Protein Calculated ~90-105 gm/day Fluid: ml ~7283-1390 ml/day (1ml/kcal) Nutritional Problem 1. Problem Problem Inadequate oral intake related to Etiology poor appetite aeb Signs/Symptoms: PO intake <25% of meals Intervention/Recommendation Comments 1. Continue mechannical soft, chopped diet as tolerated by patient. 2. Add Ensure Enlive TID with meals to supplement oral intake. 3. Provide assistance with meals and encourage oral intake. Expected Outcomes/Goals Expected Outcomes/Goals PO intake to meet >75% of nutritional needs, weight stability or trend toward ideal body weight, skin intact , nutrition related labs to approach WNL. F/U HR 03/10-
[2019-03-09] MEDS: Dexamethasone/Tobramycin Ophth Susp 2.5 mL Bottle EACH EYE SCH ×2 (09:53→17:32)
--- NOTE | 2019-03-09 10:56 | Diagnostic Imaging Report ---
Portable chest x-ray HISTORY: Shortness of breath Compared to prior exam of March 06, 2019, patient is rotated. The heart remains enlarged. Atherosclerotic calcification seen in the aorta. No acute focal pulmonary processes. Cardiac pacemaker lead wires project over the right atrium and right ventricle. IMPRESSION: 1. No significant change from the prior examination of March 06, 2019 as noted above.
[2019-03-09 10:59] LABS: PaCO2 63.9 mmHg (35.0-45.0); PaO2 57.2 mmHg (80.0-100.0); sO2c 80.5 % (92.0-100.0)
[2019-03-09] MEDS ORDERED: Midazolam 1mg/ml 2 ml vial IV ONE ×2 (11:13→11:16)
--- NOTE | 2019-03-09 11:44 | General Progress Note ---
Subjective - Review of Systems Service Date: 03/09/19 Subjective: Patient sleeping in Trendelenburg position Patient has a respiratory distress patient is intubated Objective - Results Result Diagrams: 03/09/19 04:15 03/09/19 04:15 Recent Labs: Laboratory Last Values WBC 6.3 Th/cmm (4.8-10.8) 03/09/19 04:15 RBC 3.23 Mil/cmm (3.80-5.80) L 03/09/19 04:15 Hgb 10.3 gm/dL (12-16) L 03/09/19 04:15 Hct 31.8 % (41.0-60) L 03/09/19 04:15 MCV 98.4 fl (80-99) 03/09/19 04:15 MCH 31.9 pg (27.0-31.0) H 03/09/19 04:15 MCHC Differential 32.4 pg (28.0-36.0) 03/09/19 04:15 RDW 14.4 % (11.5-20.0) 03/09/19 04:15 Plt Count 160 Th/cmm (150-400) 03/09/19 04:15 MPV 7.4 fl 03/09/19 04:15 Neutrophils % 69.8 % (40.0-80.0) 03/09/19 04:15 Lymphocytes % 21.5 % (20.0-50.0) 03/09/19 04:15 Monocytes % 5.4 % (2.0-10.0) 03/09/19 04:15 Eosinophils % 3.0 % (0.0-5.0) 03/09/19 04:15 Basophils % 0.3 % (0.0-2.0) 03/09/19 04:15 PT 10.3 SECONDS (9.5-11.5) 03/07/19 04:45 INR 0.99 (0.5-1.4) 03/07/19 04:45 PTT (Actin FS) 34.3 SECONDS (26.0-38.0) 03/07/19 04:45 Specimen Source Arterial 03/09/19 10:49 Sample Site RB 03/09/19 10:49 pH 7.150 (7.35-7.45) L* 03/09/19 10:49 pCO2 63.9 mmHg (35.0-45.0) H* 03/09/19 10:49 pO2 57.2 mmHg (80.0-100.0) L 03/09/19 10:49 HCO3 21.8 mEq/L (20.0-26.0) 03/09/19 10:49 Base Excess -8.2 mEq/L (-3.0-3.0) L 03/09/19 10:49 O2 Saturation 80.5 % (92.0-100.0) L 03/09/19 10:49 Inspired O2 40 03/09/19 10:49 Critical Value PW 03/09/19 10:49 Sodium 136 mEq/L (136-145) 03/09/19 04:15 Potassium 4.4 mEq/L (3.5-5.1) 03/09/19 04:15 Chloride 106 mEq/L (98-107) 03/09/19 04:15 Carbon Dioxide 22.0 mEq/L (21.0-31.0) 03/09/19 04:15 Anion Gap 12.4 (7.0-16.0) 03/09/19 04:15 BUN 16 mg/dL (7-25) 03/09/19 04:15 Creatinine 1.3 mg/dL (0.7-1.3) 03/09/19 04:15 Est GFR ( Amer) TNP 03/09/19 04:15 Est GFR (Non-Af Amer) TNP 03/09/19 04:15 BUN/Creatinine Ratio 12.3 03/09/19 04:15 Glucose 103 mg/dL (70-105) 03/09/19 04:15 POC Glucose 76 MG/DL (70 - 105) 03/06/19 16:00 Whole Bld Lactic Acid 1.40 mmol/L (0.60-1.99) 03/06/19 17:00 Calcium 8.3 mg/dL (8.6-10.3) L 03/09/19 04:15 Total Bilirubin 0.5 mg/dL (0.3-1.0) 03/09/19 04:15 AST 45 U/L (13-39) H 03/09/19 04:15 ALT 27 U/L (7-52) 03/09/19 04:15 Alkaline Phosphatase 50 U/L (34-104) 03/09/19 04:15 Total Protein 5.4 gm/dL (6.0-8.3) L 03/09/19 04:15 Albumin 3.4 gm/dL (4.2-5.5) L 03/09/19 04:15 Globulin 2.0 gm/dL 03/09/19 04:15 Albumin/Globulin Ratio 1.7 (1.0-1.8) 03/09/19 04:15 TSH 93.32 uIU/ml (0.34-5.60) H 03/07/19 04:45 Urine Source [place] 03/07/19 01:15 Urine Color PINK 03/07/19 01:15 Urine Clarity HAZY (CLEAR) 03/07/19 01:15 Urine pH 5.5 (4.6 - 8.0) 03/07/19 01:15 Ur Specific [place] 1.025 (1.005-1.030) 03/07/19 01:15 Urine Protein 30 mg/dL (NEGATIVE) H 03/07/19 01:15 Urine Glucose (UA) NEGATIVE mg/dL (NEGATIVE) 03/07/19 01:15 Urine Ketones NEGATIVE mg/dL (NEGATIVE) 03/07/19 01:15 Urine Blood LARGE (NEGATIVE) H 03/07/19 01:15 Urine Nitrate NEGATIVE (NEGATIVE) 03/07/19 01:15 Urine Bilirubin NEGATIVE (NEGATIVE) 03/07/19 01:15 Urine Urobilinogen 0.2 E.U./dL (0.2 - 1.0) 03/07/19 01:15 Ur Leukocyte Esterase SMALL (NEGATIVE) H 03/07/19 01:15 Urine RBC 10-25 /hpf (0-5) H 03/07/19 01:15 Urine WBC 2-5 /hpf (0-5) 03/07/19 01:15 Ur Epithelial Cells NONE SEEN /lpf (FEW) 03/07/19 01:15 Urine Bacteria NONE SEEN /hpf (NONE SEEN) 03/07/19 01:15 Vancomycin Trough 14.9 ug/mL (5-10) H 03/08/19 09:30 - Physical Exam Vitals and I&O: Vital Signs Temp 97.2 F 03/09/19 08:00 Pulse 61 03/09/19 08:00 Resp 14 03/09/19 08:00 BP 73/35 03/09/19 08:00 Pulse Ox 98 03/09/19 08:00 Intake & Output 03/08/19 03/09/19 03/09/19 18:59 06:59 18:59 Intake Total 310 1360 Output Total 400 400 Balance -90 960 Weight (lbs) 87.997 kg 87.997 kg Intake: Intake, IV Amount 300 1350 D5-0.9%Ns 1,000 ml @ 80 1000 mls/hr IV .[id number] [facility] Rx #:[id number] Piperacillin Sodium/ 50 100 Tazobact 2.25 gm In Sodium Chloride 0.9% 50 ml @ 100 mls/hr IV Q8HR [facility] Rx#:[id number] Vancomycin HCl 1 gm In 250 250 Sodium Chloride 0.9% 250 ml @ 165 mls/hr IV Q12H [facility] Rx#:[id number] Oral 10 10 Output: Urine 400 400 Other: # Bowel Movements 0 1 Stool Characteristics Soft Soft Brown Brown Weight Source Bedscale Bedscale Active Medications: Current Medications Acetaminophen (Tylenol) 650 mg PO Q4H PRN PRN Reason: Mild Pain/Headache/T above 101 Stop: 05/06/19 17:04 Al Hydrox/Mg Hydrox/Simethicone (Maalox) 30 ml PO Q6H PRN PRN Reason: Dyspepsia Stop: 05/06/19 17:04 Atorvastatin Calcium (Lipitor) 20 mg PO [facility]; Protocol Stop: 05/06/19 20:59 Last Admin: 03/08/19 20:38 Dose: Not Given Piperacillin Sod/Tazobactam (Sod 2.25 gm/ Sodium Chloride) 50 mls @ 100 mls/hr IV Q8HR [facility] Stop: 05/05/19 20:59 Last Infusion: 03/09/19 05:42 Dose: Infused Norepinephrine Bitartrate 8 mg (/ Dextrose) 258 mls @ 0 mls/hr IV PRN PRN; Protocol PRN Reason: BP MAINTENANCE (PER PROTOCOL) Stop: 05/06/19 03:59 Last Titration: 03/07/19 19:00 Dose: 0 mcg/min, 0 mls/hr Dextrose/Sodium Chloride (D5-0.9%Ns) 1,000 mls @ 80 mls/hr IV .[id number] [facility] Stop: 05/07/19 16:59 Last Admin: 03/09/19 06:10 Dose: 80 mls/hr Magnesium Hydroxide (Milk Of Magnesia) 30 ml PO HS PRN PRN Reason: Constipation Stop: 05/06/19 17:04 Thyroid ([facility] [place] Thyroid) 90 mg PO DAILY [facility] Stop: 05/07/19 08:59 Last Admin: 03/09/19 09:52 Dose: 90 mg Tobramycin/Dexamethasone (Tobradex 0.1%-0.3% Ophth Susp 2.5ml) 1 drop EACH EYE BID [facility] Stop: 03/11/19 08:59 Last Admin: 03/09/19 09:53 Dose: 1 drop General: No acute distress HEENT: Mucous membr. moist/pink Neck: Supple, JVD, +2 carotid pulse wo bruit Cardiovascular: Regular rate (flat), Normal S1, Normal S2, Systolic murmurs Lungs: Clear to auscultation, Normal air movement Abdomen: Bowel sounds, Soft, Other Extremities: Edema (no organomegaly no pedal edema) Neurological: Reflexes 2+ Assessment/Plan - Assessment Assessment: Hypotension off Levophed Sepsis Major depression Anxiety Hypothyroid bradycardia Respiratory failure with intubation - Plan Plan: Patient off Levophed patient on Trandate on position change IV to D5 normal saline as patient is not taking orally anything Department management and hypotension we might resume Levophed Nutritional Asmnt/Malnutr-PDOC - Dietary Evaluation Malnutrition Findings (Please click <Entered> for more info): Nutritional Asmnt/Malnutrition Start: 03/08/19 11: 30 Text: Status: Complete Freq: Protocol: Document 03/08/19 11:30 MMULHERN (Rec: 03/08/19 11:54 MMULHERN YUKI- FNS1) Nutritional Asmnt/Malnutrition Patient General Information Nutritional Screening High Risk Consult Diagnosis Dehydration, low BP Pertinent Medical Hx/Surgical Hx HTN, Anxiety, depression Subjective Information Consult received for Cornelius Espinoza . Per nursing notes on 03/06, patient with poor appetite, ate ~10% of dinner. Patient asleep at time of visit. Per RN, patient did not wake up for his lunch. Current Diet Order/ Nutrition Support Mechanical soft chopped Patient / S.O Not Indicated Pertinent Medications Maalox, Lipitor, MOM, abx Pertinent Labs (03/08) Na 134, Ca 8.2, Albumin 3.7 Nutritional Hx/Data Height 1.8 m Height (Calculated Centimeters) 180.3 Current Weight (lbs) 87.997 kg Weight (Calculated Kilograms) 88.0 Weight (Calculated Grams) 76571.9 [place] Body Weight 172 % [place] Body Weight 112 Body Mass Index (BMI) 27.0 Recent Weight Change No Weight Status Overweight GI Symptoms GI Symptoms None Last BM none noted since admission Difficult in: None Food Allergies No Cultural/Ethnic/Tenriism Belief none indicated Usual diet at home unknown Skin Integrity/Comment: Cornelius 14, reddened/potential right/left hand, right/left arm Current %PO Negligible < 25% Estimated Nutritional Goals BEE in Kcals: Using Current wt Calories/Kcals/Kg 88.1kg CBW Kcals Calculated ~4543-3345 kcal/day (22-27 kcal/kg) Protein: Using Current wt Protein g/k-1.2 gm/kg Protein Calculated ~90-105 gm/day Fluid: ml ~7299-5315 ml/day (1ml/kcal) Nutritional Problem 1. Problem Problem Inadequate oral intake related to Etiology poor appetite aeb Signs/Symptoms: PO intake <25% of meals Intervention/Recommendation Comments 1. Continue mechannical soft, chopped diet as tolerated by patient. 2. Add Ensure Enlive TID with meals to supplement oral intake. 3. Provide assistance with meals and encourage oral intake. Expected Outcomes/Goals Expected Outcomes/Goals PO intake to meet >75% of nutritional needs, weight stability or trend toward ideal body weight, skin intact , nutrition related labs to approach WNL. F/U HR 03/10-
--- NOTE | 2019-03-09 12:20 | Diagnostic Imaging Report ---
Portable chest x-ray HISTORY: Endotracheal tube placement Compared with prior exam performed earlier in the day (1051 hours), endotracheal tube has been inserted. The tip is approximately 3.5 cm above the kadi. There is a poor inspiration. No focal bony processes. The heart is enlarged. IMPRESSION: 1. Endotracheal tube placement as noted above 2. Allowing for a poor inspiration, no acute focal bony processes
[2019-03-09 13:25] LABS: PaCO2 38.5 mmHg (35.0-45.0); sO2c 95.9 % (92.0-100.0)
[2019-03-09] MEDS ORDERED: Sodium Chloride 0.9% 250 ML IV ONE (19:31)
[2019-03-09] MEDS: Atorvastatin Calcium 10 MG TAB PO SCH (20:11)
[2019-03-10] MEDS ORDERED: Albuterol/Ipratropium Neb 3 ML AERS HHN SCH (01:00)
--- NOTE | 2019-03-10 03:12 | Progress Notes ---
DATE: 03/09/2019 Case was discussed with staff of the patient, reviewed records. The patient was transferred from [facility] to ICU because of hypotension on the 03/06/2019. The patient in general is calmer, was taken off the Seroquel. He is still not medically cleared and he is still off the Seroquel. I recommend to continue to be off Seroquel and we will continue to follow up with the patient. Thank you very much for allowing me to participate in the care of this most interesting gentleman. JOB# [id number]
--- NOTE | 2019-03-10 08:39 | Diagnostic Imaging Report ---
CHEST X-RAY: AP view INDICATION: Right PICC line and NG tube insertion COMPARISON: Chest x-ray earlier the same day at 1132 FINDINGS: ET tube is seen with tip 4 cm above the Iliana. Left chest wall pacer is stable. Right PICC line is seen with tip not well visualized due to overlying pacemaker leads but may reside at the cavoatrial junction or right atrial region. NG tube is in the stomach. Few bilateral hazy infiltrates are seen. No effusions. Heart size is borderline prominent. IMPRESSION: Right PICC line with tip not well seen due to overlying pacemaker leads but may reside within the cavoatrial junction or right atrial region. Consider slight pullback. NG tube in the stomach Diffuse hazy bilateral infiltrates.
--- NOTE | 2019-03-10 11:29 | Consultation ---
DATE OF CONSULTATION: 03/09/2019 PATIENT OF: Dr. Gold Thank you very much, Dr. Gold for this consultation. This is an 79-year-old male with history of psychosis and dementia, transferred from [facility] because of hypotension and shortness of breath. The patient required to have more and more oxygen. Apparently, his ABG showed significant respiratory acidosis, required to be intubated. This morning, the patient is intubated and sedated. Blood pressure improved with Levophed and IV fluids. OTHER PAST MEDICAL HISTORY: Hypertension. SOCIAL HISTORY: Not available. REVIEW OF SYSTEMS: Unable to obtain because of the patient's condition. PHYSICAL EXAMINATION: GENERAL: The patient is intubated and sedated. VITAL SIGNS: Temperature 97.1, pulse 62, respiration 19, blood pressure 98/47, saturation 100%. HEENT: Atraumatic and normocephalic. Pupils equal and reactive to light and accommodation. Ears, nose and throat normal. NECK: Supple. No JVD. CHEST: There are good breath sounds bilaterally, few rhonchi in bases. HEART: Regular rate and rhythm. No murmurs. ABDOMEN: Soft, no tenderness. EXTREMITIES: There is no edema. LABORATORY AND DIAGNOSTIC DATA: WBC 6.3, hemoglobin 10.3, hematocrit 31.8, platelets 160. ABGs: pH 7.36, pCO2 of 38, pO2 83, bicarb 21, saturation 95%. Sodium 136, potassium 4.4, BUN 16, creatinine 1.3. Chest x-ray: This shows right lower lobe infiltrate, minimal infiltrate in the left base as well. IMPRESSION: 1. Respiratory failure. 2. Pneumonia. 3. Dysphagia. 4. Weakness. 5. Hypercapnia. PLAN: 1. IV antibiotics. 2. Sputum culture. 3. Pulmonary toilet, supportive care. The patient is awaiting transfer to long-term acute care. We will follow up on these above results over there. Thank you very much for this consultation. We will follow the patient along with you. JOB# [id number]
== END 2019-03-09 23:20 | DRG 871 ==
LOC: MSI 15:12 → TELE 15:48 → ICU 03-07 00:50
PROVIDERS: ADMIT Internal Medicine; ATTEND Internal Medicine
PROC: 02HV33Z Insertion of Infusion Device into Superior Vena Cava, Percutaneous Approach (ICD-10-PCS; 2019-03-06)
PROC: 5A1935Z Respiratory Ventilation, Less than 24 Consecutive Hours (ICD-10-PCS; principal; 2019-03-09)
PROC: 0BH17EZ Insertion of Endotracheal Airway into Trachea, Via Natural or Artificial Opening (ICD-10-PCS; 2019-03-09)
DX: A41.9 Sepsis, unspecified organism (principal); J18.9 Pneumonia, unspecified organism; J96.92 Respiratory failure, unspecified with hypercapnia; R53.2 Functional quadriplegia; F41.9 Anxiety disorder, unspecified; F32.9 Major depressive disorder, single episode, unspecified; I10 Essential (primary) hypertension; F29 Unspecified psychosis not due to a substance or known physiological condition; F03.90 Unspecified dementia, unspecified severity, without behavioral disturbance, psychotic disturbance, mood disturbance, and anxiety; R13.10 Dysphagia, unspecified; E86.0 Dehydration; E03.9 Hypothyroidism, unspecified; I95.9 Hypotension, unspecified
CPT/HCPCS: 36415-UA; 36600-90; 71045-TC; 80048-TC; 80053-TC; 80202-TC; 81001-TC; 82803-TC; 82948-90; 83605; 84443-TC; 85025-TC; 85610-TC; 87086-90; 94002; 94760; J2250; J2543; J3370; J7030; J7042; X6452; Z7610